=== PATIENT | female | born 1945 | race Caucasian/White ===

== ENCOUNTER 2018-04-29 17:52 | Emergency (ER) | payer MEDICARE ==
[~2018-04-29] VITALS: Ht 167.6 cm; Wt 83.9 kg
[~2018-04-29 17:52] MED LIST: LEVO100T PO
--- NOTE | 2018-04-29 18:00 | NUR ---
ARRIVAL PATIENT TO ROOM 4 AMBULATORY, STATES SHE IS HAVEING SEVERE LOWER ABDOMINAL PAIN. HAD A HERNIAL REPAIR FOR ENSTRANGULATED HERNIA [address] MCKINNON, AND PATIENT FEELS LIKE IT IS THE SAME PAIN. PATIENT CONNECTED TO ALL MONITORS, ASSESSMENT COMPLETED. MD AT BEDSIDE FOR EVALUATION.
[2018-04-29 18:13] VITALS: BP 166/88
--- NOTE | 2018-04-29 18:17 | ER.PDOC ---
General Chief Complaint: Abdomen Pain Stated Complaint: ABD HERNIA PAIN Time seen by MD: 18:10 Source: patient Exam Limitations: no limitations History of Present Illness Initial Comments Abdominal pain for two days, pt states pain is same as it was two years ago when she had a hernia, that was later repaired Timing/Duration: 1 week Severity/Quality: severe Radiation: RUQ, epigastric Exacerbated by: upright, movements Relieved By: supine Allergies: Coded Allergies: hydrocodone (Unverified Allergy, Unknown, 01/11/14) promethazine HCl (Verified Allergy, Unknown, 01/11/14) Home Meds Reported Medications Levothyroxine Sodium (SYNTHROID) 100 Mcg Tablet, 100 MCG PO DAILY 01/11/14 Vital Signs First Vital Signs Date Time Temp Pulse Resp B/P (MAP) Pulse Ox O2 Delivery O2 Flow Rate FiO2 04/29/18 18:09 98.5 75 18 97 Room Air Last Vital Signs Date Time Temp Pulse Resp B/P (MAP) Pulse Ox O2 Delivery O2 Flow Rate FiO2 04/29/18 18:09 98.6 74 18 04/29/18 18:09 97 Room Air Past Medical History Medical History: other Surgical History: hysterectomy, other LMP (females 10-50): hysterectomy Social History Smoking: non-smoker Alcohol Use: none Drug Use: none Constitutional: no symptoms reported EENTM: no symptoms reported Respiratory: no symptoms reported Cardiovascular: no symptoms reported Gastrointestinal: see HPI Genitourinary: no symptoms reported Musculoskeletal: no symptoms reported Skin: no symptoms reported Psychiatric/Neurological: no symptoms reported Endocrine: no symptoms reported Hematologic/Lymphatic: no symptoms reported Physical Exam General Appearance: No Apparent Distress, WD/WN HEENT: PERRL/EOMI, Normal ENT Inspection, TMs Normal, Pharynx Normal Neck: Non-Tender, Full Range of Motion, Supple, Normal Inspection Respiratory: chest non-tender, lungs clear, normal breath sounds, no respiratory distress, no accessory muscle use Cardiovascular: Normal Peripheral Pulses, Regular Rate, Rhythm, No Edema, No Gallop, No JVD, No Murmur Gastrointestinal: Normal Bowel Sounds, Soft, Tenderness (RUQ, epigastric) Back: Normal Inspection, No CVA Tenderness, No Vertebral Tenderness Extremities: Normal Range of Motion, Non-Tender, Normal Inspection, No Pedal Edema, No Calf Tenderness, Normal Capillary Refill, Pelvis Stable Neurologic/Psychiatric: manager erp II-XII NML as Tested, No Motor/Sensory Deficits, Alert, Normal Mood/Affect, Oriented x 3 Skin: Normal Color, Warm/Dry Lymphatic: No Adenopathy Course Vitals & review Data Vital Sign - Last 24 Hours 04/29/18 04/29/18 18:09 18:09 Temp 98.5 98.6 Pulse 75 74 Resp 18 18 Pulse Ox 97 O2 Delivery Room Air Departure Time of Disposition: 22:40 Disposition: 01 HOME, SELF-CARE Impression: Primary Impression: Abdominal pain Condition: Stable Patient Instructions: Abdominal Pain Referrals: BE GODINEZ MD (PCP) PRIMARY CARE PROVIDER Duration or Time Spent with Pa: 25 JEFFY GOMEZ MD Apr 29, 2018 18:17
[2018-04-29 18:31] LABS: BASOPHIL % 0.1 % (0.0-0.2); EOSINOPHIL # 0.1 10^3/uL (0.0-0.2); EOSINOPHIL % 0.7 % (0.0-5.0); HEMOGLOBIN 14.2 g/dL (12.0-15.0); LYMPHOCYTES # 2.7 10^3/uL (1.0-4.8); LYMPHOCYTES % 32.4 % (24.0-44.0); MEAN CELL HGB 28.8 pg (26-34); MEAN CELL HGB CONCENTRATION 32.8 g/dL (33-37); MEAN CORP VOLUME 87.8 fL (78-100); MEAN PLATELET VOLUME 10.5 fL (7.8-11.0); MONOCYTES % 12.2 % (5.0-12.0); NEUTROPHIL # 4.5 10^3/uL (1.8-7.7); NEUTROPHILS % 54.4 % (41.0-85.0); WHITE BLOOD CELL 8.3 10^3/uL (4.5-11.0)
[2018-04-29] MEDS ORDERED: ZOFRAN IV STA (18:40)
[2018-04-29] MEDS ORDERED: ZOFRAN ONE (18:40)
[2018-04-29] MEDS ORDERED: TORADOL ONE (18:40)
[2018-04-29] MEDS ORDERED: TORADOL IV STA (18:40)
--- NOTE | 2018-04-29 18:45 | NUR ---
TORADOL AND ZOFRAN PATIENT STATES SHE WANTS TO HOLD OFF ON THE PAIN MEDICATION AND NAUSEA MEDICINE, EDP NOTIFIED
[2018-04-29 18:46] LABS: CALCIUM 9.2 mg/dL (8.4-10.5)
[2018-04-29 19:15] VITALS: BP 148/75
[2018-04-29 19:36] LABS: BILIRUBIN,URINE NEGATIVE (NEGATIVE); UROBILINOGEN,URINE NORMAL (NEGATIVE)
[2018-04-29 19:44] LABS: APPEARANCE,URINE CLEAR (CLEAR); UA COLOR YELLOW (YELLOW)
[2018-04-29 20:15] VITALS: BP 150/71
--- NOTE | 2018-04-29 20:51 | NUR ---
BACK FROM CT PATIENT BACK FROM CT
[2018-04-29 21:15] VITALS: BP 150/68
--- NOTE | 2018-04-29 22:33 | DIREP ---
PROCEDURE:CT ABDOMEN/PELVIS W/ CONTRAST COMPARISON:[facility], CT, CT-ABDOMEN / PELVIS W CONTRAST, 01/11/2014, 05:24 PM. INDICATIONS:abdominal pain TECHNIQUE:Axial images were created through the abdomen and pelvis with non-ionic intravenous contrast material. Oral contrast was administered. Sagittal and coronal reconstructions were performed from source images. FINDINGS: LUNG BASES:Emphysematous lung disease. LIVER:Diffusely diminished hepatic attenuation consistent with hepatic steatosis. BILIARY:The gallbladder is surgically absent. There is no biliary ductal dilatation. PANCREAS:Normal. No lesion, fluid collection, ductal dilatation, or atrophy. SPLEEN:Normal. No enlargement or focal lesion. ADRENALS:Normal. No mass or enlargement. URINARY TRACT:Small bilateral sub cm renal cysts. No focal lesions or hydronephrosis. Incidental prominent bilateral extrarenal pelvises. AORTA/VASCULAR:Normal. No aneurysm. RETROPERITONEUM:Normal. No mass or adenopathy. BOWEL/MESENTERY:Numerous sigmoid diverticula. Normal appendix. ABDOMINAL WALL:Normal. No mass or hernia. PELVIC ORGANS:Atrophic uterus. BONES:Mild chronic compression fracture deformity superior L4 endplate. OTHER:Negative. CONCLUSION:Sigmoid diverticulum. No definite evidence of acute diverticulitis however. Dictated by: Dony Painting M.D. on 04/29/2018 at 10:27 PM
[2018-04-29 22:45] VITALS: BP 150/84
--- NOTE | 2018-04-29 22:48 | NUR ---
IV DC'D TIP INTACT, NO BLEEDING
[2018-04-29 22:56] VITALS: BP 150/68
== END 2018-04-29 22:50 | disposition home or self-care (01) ==
LOC: ER 17:52
DX: R10.9 Unspecified abdominal pain (principal); Z90.710 Acquired absence of both cervix and uterus; Z88.5 Allergy status to narcotic agent; Z79.899 Other long term (current) drug therapy; Z88.8 Allergy status to other drugs, medicaments and biological substances
CPT/HCPCS: 36415; 74177; 80053; 81000; 82150; 83690; 85025; 85610; 85730; 87086; 96374; 99285; J1885; J2405; Q9963; Q9965

== ENCOUNTER 2020-04-20 13:11 | Emergency (ER) | payer BC, MEDICARE ==
[~2020-04-20] VITALS: Ht 167.6 cm; Wt 81.2 kg
[2020-04-20 13:47] VITALS: BP_SYST 164; BP_DIAS 100; BP_DIAS 101
[2020-04-20] MEDS ORDERED: NS 1000ML 1,000 ML IV STA (13:58)
[2020-04-20] MEDS ORDERED: ZOFRAN IV STA (13:58)
[2020-04-20] MEDS ORDERED: SUBLIMAZE IV STA (13:58)
--- NOTE | 2020-04-20 14:00 | ER.PDOC ---
General Chief Complaint: Requesting Medical Care Stated Complaint: ABD PAIN Time seen by MD: 13:53 Source: patient Exam Limitations: no limitations History of Present Illness Initial Comments Patient c/o left side abdominal pain, onset last pm, transiently resolved, came back worse this afternoon. Normal BM this morning. No report of n/v. Pain is similar to that of 2 previous incarcerated hernias. Timing/Duration: 4-6 hours Severity/Quality: severe, sharpness, stabbing Radiation: LUQ, LLQ Associated Symptoms: back pain Exacerbated by: movements Relieved By: nothing Allergies: Coded Allergies: hydrocodone (Unverified Allergy, Unknown, 01/11/14) promethazine HCl (Verified Allergy, Unknown, 01/11/14) Home Meds Reported Medications Levothyroxine Sodium (SYNTHROID) 100 Mcg Tablet, 100 MCG PO DAILY 01/11/14 Vital Signs First Vital Signs Date Time Temp Pulse Resp B/P (MAP) Pulse Ox O2 Delivery O2 Flow Rate FiO2 04/20/20 13:47 99.9 81 18 04/20/20 13:47 164/101 (122) 96 Room Air Last Vital Signs Date Time Temp Pulse Resp B/P (MAP) Pulse Ox O2 Delivery O2 Flow Rate FiO2 04/20/20 15:45 78 154/88 (110) 97 Room Air 04/20/20 13:47 99.9 16 Past Medical History Medical History: thyroid disease, other (incarcerated hernia x 2) Surgical History: cholecystectomy, other (herniorrhaghy with mesh) Social History Drug Use: none Constitutional: no symptoms reported EENTM: no symptoms reported Respiratory: no symptoms reported Cardiovascular: no symptoms reported Gastrointestinal: see HPI, abdominal pain Genitourinary: no symptoms reported Musculoskeletal: no symptoms reported Skin: no symptoms reported Physical Exam General Appearance: Mild Distress (appears acutely uncomfortable), Obese Respiratory: lungs clear, normal breath sounds, no respiratory distress, no accessory muscle use Cardiovascular: Regular Rate, Rhythm Gastrointestinal: Hypoactive bowel sounds, Soft, Tenderness (TTP LUQ and LLQ with rebound) Back: CVA Tenderness (L) Extremities: No Pedal Edema, No Calf Tenderness Neurologic/Psychiatric: Alert, Normal Mood/Affect, Oriented x 3 Skin: Normal Color, Warm/Dry Results/Orders Results/Orders Orders - JOSSELINE ROMERO DO Cbc With Auto Diff (04/20/20 13:58) Comprehensive Metabolic Panel (04/20/20 13:58) Amylase (04/20/20 13:58) Lipase (04/20/20 13:58) Helicobacter Pylori (04/20/20 13:58) PT (04/20/20 13:58) Ct Abd/Pel With Iv Contrast (04/20/20 13:58) Partial Thromboplastin Time. (04/20/20 13:58) Urinalysis (04/20/20 13:58) Saline Lock (04/20/20 13:58) 0.9 % Sodium Chloride (Ns 1000ml) (04/20/20 13:58) Ondansetron Hcl/Pf (Zofran) (04/20/20 13:58) Fentanyl Citrate/Pf (Sublimaze) (04/20/20 13:58) Ciprofloxacin 400mg/D5w 200ml (Cipro) (04/20/20 17:18) Metronidazole/Sodium Chloride (Flagyl 50 (04/20/20 17:18) Ciprofloxacin 400mg/D5w 200ml (Cipro) (04/20/20 17:36) Metronidazole (Flagyl) (04/20/20 17:41) Ciprofloxacin Hcl (Cipro) (04/20/20 17:41) Vital Signs Date Time Temp Pulse Resp B/P (MAP) Pulse Ox O2 Delivery O2 Flow Rate FiO2 04/20/20 15:45 78 154/88 (110) 97 Room Air 04/20/20 14:45 74 158/94 (115) 96 Room Air 04/20/20 13:47 99.9 81 16 96 04/20/20 13:47 99.9 81 20 164/101 (122) 96 Room Air 04/20/20 13:47 99.9 81 18 Administered Medications Medications (Trade) Dose Ordered Sig/Rosemary Route PRN Reason Start Time Stop Time Status Last Admin Dose Admin Fentanyl Citrate (Sublimaze) 100 mcg STAT STAT IV 04/20/20 13:58 04/20/20 13:59 UNV 04/20/20 14:18 50 MCG Ondansetron HCl (Zofran) 4 mg STAT STAT IV 04/20/20 13:58 04/20/20 13:59 UNV 04/20/20 14:18 4 MG Sodium Chloride 1,000 ml @ 1,200 mls/hr Q50M STAT IV 04/20/20 13:58 04/20/20 14:47 UNV 04/20/20 14:18 1,200 MLS/HR Laboratory Tests Test 04/20/20 13:54 04/20/20 14:20 Urine Collection Type VOID Urine Color YELLOW (YELLOW) Urine Appearance CLEAR (CLEAR) Urine Bilirubin NEGATIVE MG/DL (NEGATIVE) Urine Ketones NEGATIVE (NEGATIVE) Urine Specific [place] 1.015 (1.005-1.035) Urine pH 7.0 (5.0-6.0) Urine Protein NEGATIVE (NEGATIVE) Urine Urobilinogen NORMAL (NEGATIVE) Urine Nitrate NEGATIVE (NEGATIVE) Urine Leukocyte Esterase NEGATIVE (NEGATIVE) Urine Blood 25 1+ (NEGATIVE) H Urine RBC 0-2 RBC/HPF (NONE SEEN) Urine WBC 0-2 WBC/HPF (0-2) Urine Squamous Epithelial Cells RARE #/HPF (FEW) Urine Bacteria NONE SEEN (NONE SEEN) Urine Glucose NORMAL (NEGATIVE) White Blood Count 8.9 10^3/uL (4.5-11.0) Red Blood Count 4.75 10^6/uL (4.00-5.20) Hemoglobin 14.1 g/dL (12.0-15.0) Hematocrit 42.4 % (36.0-46.0) Mean Corpuscular Volume 89.3 fL (78-100) Mean Corpuscular Hemoglobin 29.7 pg (26-34) Mean Corpuscular Hemoglobin Concent 33.3 g/dL (33-36.5) Red Cell Distribution Width 12.1 % (11.5-14.5) Platelet Count 324 10^3/uL (150-400) Mean Platelet Volume 10.2 fL (7.8-11.0) Neutrophils (%) (Auto) 71.3 % (41.0-85.0) Lymphocytes (%) (Auto) 20.5 % (24.0-44.0) L Monocytes (%) (Auto) 7.5 % (5.0-12.0) Neutrophils # (Auto) 6.4 10^3/uL (1.8-7.7) Lymphocytes # (Auto) 1.83 10^3/uL1 (1.0-4.8) Monocytes # (Auto) 0.7 10^3/uL (0.3-0.8) Absolute Immature Granulocyte (auto 0.02 10^3 u/L (0-2) Absolute Eosinophils (auto) 0.0 10^3/uL (0.0-0.2) Immature Granulocytes % 0.20 % (0.00-0.50) Eosinophils % 0.3 % (0.0-5.0) Basophils % 0.2 % (0.0-0.2) Basophils # 0.0 10^3/uL (0.0-0.1) Prothrombin Time 10.2 SEC (9.3-11.3) Prothrombin Time INR (Non-Therap) 1.0 Activated Partial Thromboplast Time 24.2 SEC (24.67-30.72) Sodium Level 140 mmol/L (132-145) Potassium Level 3.3 mmol/L (3.6-5.2) L Chloride Level 103.0 mmol/L (96-109) Carbon Dioxide Level 27.7 mmol/L (20.0-32) Anion Gap 12.6 Blood Urea Nitrogen 7 mg/dL (7-18) Creatinine 0.76 mg/dL (0.59-1.40) Estimated GFR () 89.8 (>/=60) Est GFR (CKD-EPI)(Non-Afr Citizen Of [place]) 74.2 (>/=60) BUN/Creatinine Ratio 9.0 Glucose Level 99 mg/dL (70-110) Calcium Level 8.8 mg/dL (8.4-10.5) Total Bilirubin 0.6 mg/dL (0.2-1.0) Aspartate Amino Transferase (AST) 16 U/L (0-35) Alanine Aminotransferase (ALT) 21 U/L (12-78) Alkaline Phosphatase 77 U/L (50-136) Total Protein 7.1 g/dL (6.4-8.2) Albumin 3.6 g/dL (3.4-5.0) Globulin 3.5 Amylase Level 56 U/L (25-115) Lipase 114 U/L (114-286) Helicobacter pylori Screen POSITIVE (NEGATIVE) Progress Progress labs WNL; CT sees probable sigmoid diverticulitis; I offered patient admission--she declined; she does agree to return if pain is severe, fever, worse; first dose abx here Departure Time of Disposition: 17:44 Disposition: 01 HOME, SELF-CARE Impression: Primary Impression: Diverticulitis of sigmoid colon Condition: Improved Patient Instructions: Diverticulitis Referrals: BE GODINEZ MD (PCP) PRIMARY CARE PROVIDER Additional Instructions: Take both antibiotics until all gone. Alternate Motrin and Tylenol every 4 hours per package instructions for pain. Return to ER if symptoms worsen, severe pain, fever or any other concerns. Follow up with your doctor next week for reevaluation. Duration or Time Spent with Pa: 30 min JOSSELINE ROMERO DO Apr 20, 2020 14:00
[2020-04-20] MEDS ORDERED: NS 1000ML 1,000 ML ONE (14:11)
[2020-04-20] MEDS ORDERED: ZOFRAN ONE (14:11)
[2020-04-20] MEDS ORDERED: SUBLIMAZE ONE (14:12)
[2020-04-20 14:32] LABS: BASOPHIL % 0.2 % (0.0-0.2); EOSINOPHIL % 0.3 % (0.0-5.0); LYMPHOCYTES # 1.83 10^3/uL1 (1.0-4.8); LYMPHOCYTES % 20.5 % (24.0-44.0); MEAN CORP HGB 29.7 pg (26-34); MONOCYTES # 0.7 10^3/uL (0.3-0.8); MONOCYTES % 7.5 % (5.0-12.0); NEUTROPHIL # 6.4 10^3/uL (1.8-7.7); NEUTROPHILS % 71.3 % (41.0-85.0); PLATELET COUNT 324 10^3/uL (150-400); RED CELL DISTRIBUTION WIDTH 12.1 % (11.5-14.5)
[2020-04-20 14:45] VITALS: BP 158/94
[2020-04-20 14:49] LABS: APPEARANCE,URINE CLEAR (CLEAR); BILIRUBIN,URINE NEGATIVE (NEGATIVE); UA COLOR YELLOW (YELLOW)
[2020-04-20 14:50] LABS: UROBILINOGEN,URINE NORMAL (NEGATIVE)
[2020-04-20 14:57] LABS: CALCIUM 8.8 mg/dL (8.4-10.5); CARBON DIOXIDE 27.7 mmol/L (20.0-32)
[2020-04-20 15:45] VITALS: BP 154/88
--- NOTE | 2020-04-20 15:56 | NUR ---
STATUS PT RESTING IN WC AT BEDSIDE, DAUGHTER AT BEDSIDE.
[2020-04-20 16:45] VITALS: BP 148/84
--- NOTE | 2020-04-20 16:46 | DIREP ---
PROCEDURE:CT ABD/PELVIS WITH CONTRAST TECHNIQUE:No oral contrast was given. Following the intravenous administration of contrast material, venous phase cuts were obtained through the abdomen and pelvis. The images were viewed at lung and soft tissue settings. Sagittal and coronal reconstructions are provided. COMPARISON:[facility] CT, US, US ABDOMEN COMPLETE, 02/02/2020, 02:[address] [facility], CT, CT ABD/PELVIS W/O, 06/05/2019, 10:14 AM. INDICATIONS:left side abdominal pain FINDINGS: LOWER CHEST:Emphysema. No infiltrate or pleural effusion. LIVER:Stable small left hepatic cyst. BILIARY:Cholecystectomy. No biliary duct dilatation. PANCREAS:Normal. SPLEEN:Normal. URINARY TRACT:Normal nephrograms without obstruction or perinephric inflammation. Probable bilateral renal cysts, too small to characterize. Unremarkable urinary bladder. ADRENALS:Normal. AORTA/VASCULAR:Normal. RETROPERITONEUM:Normal. BOWEL/MESENTERY:Stable large descending duodenal diverticulum. Distal colonic diverticulosis with wall thickening of the mid sigmoid colon. No obstruction, significant inflammatory stranding, free fluid or air. Right paramidline cecum. Nonvisualized appendix. ABDOMINAL WALL:Reduction of right inguinal hernia. PELVIS:Hysterectomy. BONES:Chronic mild superior central compression deformity L4. OTHER:Normal. CONCLUSION: 1. Colonic diverticulosis and possible early/mild acute sigmoid diverticulitis. Neoplasm not excluded. 2. Stable small left hepatic cyst. 3. Probable small bilateral renal cysts. Dictated by: Vanessa Mcnamara MD on 04/20/2020 at 04:35 PM
[2020-04-20] MEDS ORDERED: CIPRO 200 ML IV STA (17:18)
[2020-04-20] MEDS ORDERED: FLAGYL 500MG/ 100 ML NS 100 ML IV STA (17:18)
[2020-04-20] MEDS ORDERED: CIPRO 200 ML IV ONE (17:36)
[2020-04-20] MEDS ORDERED: CIPRO ONE (17:41)
[2020-04-20] MEDS ORDERED: FLAGYL ONE (17:41)
[2020-04-20 17:45] VITALS: BP 152/86
== END 2020-04-20 17:54 | disposition home or self-care (01) ==
LOC: ER 13:11
DX: R10.12 Left upper quadrant pain (principal); R10.32 Left lower quadrant pain; Z90.89 Acquired absence of other organs; Z88.5 Allergy status to narcotic agent
CPT/HCPCS: 36415; 74177; 80053; 81000; 82150; 83690; 85025; 85610; 85730; 86677; 96374; 96375; 99285; J0744; J2405; J3010; J7030; Q9963; Q9965; 99284

== ENCOUNTER 2020-09-17 09:32 | Observation (INO) | payer MEDICARE ==
[~2020-09-17] VITALS: Ht 162.6 cm; Wt 91.2 kg
[2020-09-17 10:01] VITALS: BP 167/100
[2020-09-17] MEDS ORDERED: MORPHINE SULFATE IV STA ×2 (10:07→10:24)
[2020-09-17] MEDS ORDERED: ZOFRAN IV STA (10:07)
[2020-09-17 10:13] LABS: BASOPHIL % 0.1 % (0.0-0.2); LYMPHOCYTES # 1.43 10^3/uL1 (1.0-4.8); LYMPHOCYTES % 17.2 % (24.0-44.0); MONOCYTES # 0.6 10^3/uL (0.3-0.8); MONOCYTES % 7.5 % (5.0-12.0); NEUTROPHIL # 6.2 10^3/uL (1.8-7.7); NEUTROPHILS % 74.7 % (41.0-85.0); PLATELET COUNT 339 10^3/uL (150-400); RED CELL DISTRIBUTION WIDTH 12.5 % (11.5-14.5)
[2020-09-17] MEDS ORDERED: NS 1000ML 1,000 ML ONE (10:14)
[2020-09-17] MEDS ORDERED: MORPHINE SULFATE ONE ×2 (10:14→23:13)
[2020-09-17] MEDS ORDERED: ZOFRAN ONE (10:14)
--- NOTE | 2020-09-17 10:29 | ER.PDOC ---
General Chief Complaint: Abdomen Pain Stated Complaint: HERNIA Time seen by MD: 10:22 Source: patient Exam Limitations: no limitations History of Present Illness Timing/Duration: 4-6 hours Severity/Quality: severe, cramping Radiation: RLQ, LLQ, back Associated Symptoms: nausea/vomiting Exacerbated by: movements, walking, cough, food Allergies: Coded Allergies: hydrocodone (Verified Allergy, Unknown, 09/17/20) promethazine HCl (Verified Allergy, Unknown, 09/17/20) Home Meds Reported Medications Levothyroxine Sodium (SYNTHROID) 100 Mcg Tablet, 100 MCG PO DAILY 01/11/14 Vital Signs First Vital Signs Date Time Temp Pulse Resp B/P (MAP) Pulse Ox O2 Delivery O2 Flow Rate FiO2 09/17/20 10:01 98.2 85 20 09/17/20 10:01 167/100 (122) 97 Room Air Last Vital Signs Date Time Temp Pulse Resp B/P (MAP) Pulse Ox O2 Delivery O2 Flow Rate FiO2 09/17/20 10:42 73 20 123/71 (88) 95 Room Air 09/17/20 10:01 98.2 Past Medical History Medical History: thyroid disease Surgical History: cholecystectomy, other LMP (females 10-50): postmenopause Social History Alcohol Use: none Drug Use: none Reviewed Nursing Reviewed: Vital Signs, Abn. Noted All Other Systems: Reviewed and Negative Physical Exam General Appearance: No Apparent Distress, WD/WN HEENT: PERRL/EOMI, Normal ENT Inspection, TMs Normal, Pharynx Normal Neck: Non-Tender, Full Range of Motion, Supple, Normal Inspection Respiratory: chest non-tender, lungs clear, normal breath sounds, no respiratory distress, no accessory muscle use Cardiovascular: Normal Peripheral Pulses, Regular Rate, Rhythm, No Edema, No Gallop, No JVD, No Murmur Gastrointestinal: Normal Bowel Sounds, Non Tender, Soft, Guarding, Tenderness Back: Normal Inspection, No CVA Tenderness, No Vertebral Tenderness Extremities: Swelling 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 (09/17/20 10:04) Urinalysis (09/17/20 10:04) Saline Lock (09/17/20 10:04) Ekg-Routine (09/17/20 10:05) Morphine Sulfate (Morphine Sulfate) (09/17/20 10:07) Ondansetron Hcl/Pf (Zofran) (09/17/20 10:07) 0.9 % Sodium Chloride (Ns 1000ml) (09/17/20 10:30) 0.9 % Sodium Chloride (Ns 1000ml) (09/17/20 10:14) Ondansetron Hcl/Pf (Zofran) (09/17/20 10:14) Morphine Sulfate (Morphine Sulfate) (09/17/20 10:14) Morphine Sulfate (Morphine Sulfate) (09/17/20 10:24) Fentanyl Citrate/Pf (Sublimaze) (09/17/20 11:27) Fentanyl Citrate/Pf (Sublimaze) (09/17/20 11:28) Vital Signs Date Time Temp Pulse Resp B/P (MAP) Pulse Ox O2 Delivery O2 Flow Rate FiO2 09/17/20 10:42 73 20 123/71 (88) 95 Room Air 09/17/20 10:01 98.2 85 20 09/17/20 10:01 98.2 85 20 167/100 (122) 97 Room Air 09/17/20 10:01 98.2 85 20 Administered Medications Medications (Trade) Dose Ordered Sig/Rosemary Route PRN Reason Start Time Stop Time Status Last Admin Dose Admin Fentanyl Citrate (Sublimaze) 50 mcg STAT STAT IV 09/17/20 11:27 09/17/20 11:28 DC 09/17/20 11:40 50 MCG Morphine Sulfate (Morphine Sulfate) 4 mg STAT STAT IV 09/17/20 10:24 09/17/20 10:26 DC 09/17/20 10:22 4 MG Ondansetron HCl (Zofran) 4 mg STAT STAT IV 09/17/20 10:07 09/17/20 10:09 DC 09/17/20 10:22 4 MG Sodium Chloride 1,000 ml @ 0 mls/hr Q0M ONCE IV 09/17/20 10:30 09/17/20 10:31 DC 09/17/20 10:22 1,000 MLS/HR Laboratory Tests Test 09/17/20 10:04 09/17/20 10:05 White Blood Count 8.3 10^3/uL (4.5-11.0) Red Blood Count 5.21 10^6/uL (4.00-5.20) H Hemoglobin 15.1 g/dL (12.0-15.0) H Hematocrit 45.7 % (36.0-46.0) Mean Corpuscular Volume 87.7 fL (78-100) Mean Corpuscular Hemoglobin 29.0 pg (26-34) Mean Corpuscular Hemoglobin Concent 33.0 g/dL (33-36.5) Red Cell Distribution Width 12.5 % (11.5-14.5) Platelet Count 339 10^3/uL (150-400) Mean Platelet Volume 10.1 fL (7.8-11.0) Neutrophils (%) (Auto) 74.7 % (41.0-85.0) Lymphocytes (%) (Auto) 17.2 % (24.0-44.0) L Monocytes (%) (Auto) 7.5 % (5.0-12.0) Neutrophils # (Auto) 6.2 10^3/uL (1.8-7.7) Lymphocytes # (Auto) 1.43 10^3/uL1 (1.0-4.8) Monocytes # (Auto) 0.6 10^3/uL (0.3-0.8) Absolute Immature Granulocyte (auto 0.04 10^3 u/L (0-2) Absolute Eosinophils (auto) 0.0 10^3/uL (0.0-0.2) Immature Granulocytes % 0.50 % (0.00-0.50) Eosinophils % 0.0 % (0.0-5.0) Basophils % 0.1 % (0.0-0.2) Basophils # 0.0 10^3/uL (0.0-0.1) Prothrombin Time 9.8 SEC (9.3-11.3) Prothrombin Time INR (Non-Therap) 1.0 Activated Partial Thromboplast Time 24.1 SEC (24.67-30.72) Sodium Level 136 mmol/L (132-145) Potassium Level 4.5 mmol/L (3.6-5.2) Chloride Level 101.0 mmol/L (96-109) Carbon Dioxide Level 23.3 mmol/L (20.0-32) Anion Gap 16.2 Blood Urea Nitrogen 13 mg/dL (7-18) Creatinine 0.81 mg/dL (0.59-1.40) Estimated GFR () 83.4 (>/=60) Est GFR (CKD-EPI)(Non-Afr [place]) 68.9 (>/=60) BUN/Creatinine Ratio 16.0 Glucose Level 91 mg/dL (70-110) Calcium Level 9.0 mg/dL (8.4-10.5) Total Bilirubin 0.5 mg/dL (0.2-1.0) Aspartate Amino Transferase (AST) 53 U/L (0-35) H Alanine Aminotransferase (ALT) 37 U/L (12-78) Alkaline Phosphatase 64 U/L (50-136) Total Protein 7.0 g/dL (6.4-8.2) Albumin 3.1 g/dL (3.4-5.0) L Globulin 3.9 Albumin/Globulin Ratio 0.794 Amylase Level 53 U/L (25-115) Lipase 139 U/L (114-286) Helicobacter pylori Screen POSITIVE (NEGATIVE) EKG/XRAY/CT/US EKG: NSR, nonspecific ST T wave chg Consult/PCP Time Consult/PCP Called: 12:22 Consult/PCP: DR YUMIKO SALAS DEPART Departure Time of Disposition: 12:00 Disposition: 09 ADMITTED INPATIENT Impression: Primary Impression: Enteritis Condition: Stable Referrals: BE GODINEZ MD (PCP) PRIMARY CARE PROVIDER Duration or Time Spent with Pa: OctavioM MELANIE FISHER MD Sep 17, 2020 10:29
--- NOTE | 2020-09-17 10:29 | PCM.EKG ---
[facility] Test Date: 2020-09-17 Test Time: 10:26:14 Pat Name: NIRAV PACHECO Department: Room: 233 Gender: F Debt Collector: CLEMENTINE : 1945 Requested By: MELANIE MAGALLANES Order Number: [id number] Reading MD: Melanie Magallanes Measurements Intervals [place] Rate: 79 P: 0 SD: 75 QRS: -43 QRSD: 96 T: 197 QT: 365 QTc: 419 Interpretive Statements Sinus rhythm Ventricular premature complex Abnormal R-wave progression, late transition Nonspecific repol abnormality, diffuse leads Ventricular premature complex(es) now present Short SD interval now present Electronically Signed On 09-21-2020 9:15:28 ELECTRICAL TECH by Melanie Magallanes Please click the below link to view image of tracing.
[2020-09-17 10:30] LABS: CARBON DIOXIDE 23.3 mmol/L (20.0-32)
[2020-09-17] MEDS ORDERED: NS 1000ML 1,000 ML IV ONE (10:30)
[2020-09-17 10:42] VITALS: BP 123/71
[2020-09-17] MEDS ORDERED: SUBLIMAZE IV STA (11:27)
[2020-09-17] MEDS ORDERED: SUBLIMAZE ONE (11:28)
--- NOTE | 2020-09-17 11:57 | DIREP ---
PROCEDURE:CT ABDOMEN/PELVIS W/ CONTRAST COMPARISON:[facility], CT, CT ABD/PELVIS W/ CONTRAST, 04/20/2020, 04:14 PM. INDICATIONS:abdominal TECHNIQUE:Axial images were created through the abdomen and pelvis with non-ionic intravenous contrast material. No oral contrast was administered. Sagittal and coronal reconstructions were performed from source images. FINDINGS: LUNG BASES:Normal. No visible pulmonary or pleural disease. LIVER:No significant lesions. Two tiny sub cm cysts. BILIARY:Cholecystectomy PANCREAS:No pancreatic lesion. Duodenal diverticulum adjacent to the pancreatic head, unchanged SPLEEN:Normal. No enlargement or focal lesion. ADRENALS:Normal. No mass or enlargement. URINARY TRACT:Several sub cm cysts, nonenhancing, both kidneys. No hydronephrosis or hydroureter AORTA/VASCULAR:Normal. No aneurysm. RETROPERITONEUM:Normal. No mass or adenopathy. BOWEL/MESENTERY:No oral contrast. Edematous small bowel mesentery with mild thickening of small bowel wall, multiple loops mid abdomen. Distal small bowel and right lower quadrant unremarkable. Scattered diverticula of the left colon, no focal signs of diverticulitis in the left lower quadrant or pelvis. Superior mesenteric artery is identified and patent in the proximal portion. ABDOMINAL WALL:Tiny left inguinal hernia with some inflammation in the surrounding fat PELVIC ORGANS:Normal. No visible mass. Pelvic organs appropriate for patient age. BONES:Bowing of the L4 endplates, unchanged OTHER:Negative. CONCLUSION:Edema of the proximal small bowel mesentery with thickening of small bowel wall in the central abdomen. No dilated loops. No fluid collection. Mild diverticulosis without signs of diverticulitis. Dictated by: Bhavin Greene MD on 09/17/2020 at 11:47 AM
[2020-09-17] MEDS ORDERED: LACTATED RINGERS 1,000 ML SCH (12:30)
[2020-09-17] MEDS ORDERED: SUBLIMAZE IV PRN (12:30)
[2020-09-17 12:33] LABS: APPEARANCE,URINE CLEAR (CLEAR); BILIRUBIN,URINE NEGATIVE (NEGATIVE); UA COLOR YELLOW (YELLOW)
[2020-09-17 12:34] LABS: UROBILINOGEN,URINE NEGATIVE (NEGATIVE)
[2020-09-17 13:08] VITALS: BP 151/62
[2020-09-17] MEDS ORDERED: ACTIDOSE-AQUA ONE (13:16)
[2020-09-17 14:30] VITALS: BP 135/68
--- NOTE | 2020-09-17 14:30 | NUR ---
Received patient from ER alert and oriented x3, on 2I/mn via nasal canula no distress noted. Patient admitted for c/o of abdominal pain as per report . IV on left hand infusing . LR at 100 ml/hr. V/S: temp 97.5, pulse 73 , BP 158/83, O2 sat 95%. [place] intact, bilateral SCDs in place continue monitoring.
--- NOTE | 2020-09-17 14:50 | NUR ---
PT SAO2 90-91%. APPLIED 2 L OF O2 NC. SAO2 INCREASED TO 96%.
[2020-09-17] MEDS: LACTATED RINGERS 1,000 ML IV SCH ×2 (15:03→22:17)
[2020-09-17 15:10] VITALS: BP 158/83
--- NOTE | 2020-09-17 15:57 | PCM.HP ---
History of Present Illness Reason for Visit: (1) Abdominal pain ICD Code: R10.9 - Unspecified abdominal pain SNOMED: 00450717 Hx of Present Illness Patient is a 75-year-old very pleasant lady with a past medical history of hypothyroidism who presented to the ED this morning with a complaint of severe pain, 10/10 across the middle of the belly which is moving throughout the abdomen. She tells me that she woke up went to the bathroom, had a normal BM, and then felt this pain started. She says the pain feels like bloating and as if she is gassy. Because of that feeling she took [place] but did not have any relief from it. She says she is having a hard time describing what the pain feels like because it is so severe. She continues to sit if she lays perfectly still the pain is 6 out of 10 but with any movement it becomes a 10 out of 10. The pain migrates from the upper quadrants to the lower quadrant and during our interview she tells me that the pain actually moved to the right shoulder. Patient denies any nausea vomiting, diarrhea, or any other symptoms pertaining to the abdomen or any other part of her body at this time. Patient states that she has been feeling just fine until she woke up this morning. She did in fact recently recover from COVID-19 and did have IV antibiotics and treatments at home but was never hospitalized. In emergency she was worked up she was found to have a normal white blood cell count, hemoglobin of 15, hematocrit 45.7 her chemistry was within normal limits except for mildly elevated AST at 53 and an albumin of 3.1 which is mildly low. She was positive for H. pylori, however negative for SARS-CoV-[address] of the abdomen was done which showed edema of the proximal small bowel mesentery with thickening of the small bowel wall and central abdomen, however no dilated loops were seen, no fluid collection. There was mild diverticulosis without signs of diverticulitis. Past Medical History PMH-Endocrine: (1) Hypothyroidism ICD Code: E03.9 - Hypothyroidism, unspecified SNOMED: 52455129 Endocrine: Hyperthyroidism Past Surgical History: (1) FHx: GI cancer ICD Code: Z80.0 - Family history of malignant neoplasm of digestive organs SNOMED: 798148895 (2) Family history of cerebrovascular accident (CVA) in mother ICD Code: Z82.3 - Family history of stroke SNOMED: 635720594, 535234008 (3) H/O hernia repair ICD Code: Z98.890 - Other specified postprocedural states; Z87.19 - Personal history of other diseases of the digestive system SNOMED: 45177406, [id number] (4) History of cholecystectomy ICD Code: Z90.49 - Acquired absence of other specified parts of digestive tract SNOMED: 81808660, 975892799 (5) Lung collapse ICD Code: J98.19 - Other pulmonary collapse SNOMED: 65924669 (6) History of bladder suspension procedure ICD Code: Z98.890 - Other specified postprocedural states; Z87.448 - Personal history of other diseases of urinary system SNOMED: 470022465 Past Social History Past Social Hx:Smoke: (1) Smoking history ICD Code: Z87.891 - Personal history of nicotine dependence SNOMED: 086400599 (2) No history of alcohol use ICD Code: Z78.9 - Other specified health status SNOMED: 915287850 (3) No illicit drug use SNOMED: 752696987 (4) Lives with SNOMED: 236561118 Vaccines/Immunizations up-to-d: No (PT unsure) Travel History EBOLA RISK:Travel to/contact w: No Is pt experiencing any Ebola s: No Review of Systems Constitutional: No: Fever, Chills, Sweats, Weakness, Malaise, Other Eyes: No: Pain, Vision change, Conjunctivae inflammation, Eyelid inflammation, Other, Redness ENT: No: Ear pain, Ear discharge, Nose pain, Nose discharge, Nose congestion, Mouth pain, Mouth swelling, Throat pain, Throat swelling, Other Respiratory: No: Cough, Dry, Shortness of breath, SOB with excertion, Wheezing, Hemoptysis, Pleuritic Pain, Sputum, Wheezing, Other Cardiovascular: No: Chest Pain, Palpitations, Orthopnea, Paroxysmal Noc. Dyspnea, Edema, Lt Headedness, Other Gastrointestinal: Abdominal Pain; No: Nausea, Vomiting, Diarrhea, Constipation, Melena, Hematochezia, Other Genitourinary: No Dysuria, No Frequency, No Incontinence, No Hematuria, No Retention, No Other Musculoskeletal: No: other, neck pain, shoulder pain, arm pain, back pain, hand pain, leg pain, foot pain Skin: No: Rash, Lesions, Jaundice, Bruising, Other Neurological: No: Weakness, Numbness, Incoordination, Change in speech, Confusion, Seizures, Other Allergies: Coded Allergies: hydrocodone (Verified Allergy, Unknown, 09/17/20) promethazine HCl (Verified Allergy, Unknown, 09/17/20) Scheduled Levothyroxine Sodium (Synthroid), 100 MCG PO DAILY, (Reported) VTE VTE Risk Total Score: 2 VTE Risk Score VTE Risk: Score 0-1 = Low Risk (Aggressive mobilization; early ambulation; no VTE prophylaxis required) Score 2: Moderate Risk (Intermittent/Pneumatic Compression Device OR Lovenox/Heparin/Coumadin) Score 3-4: High Risk (Intermittent/Pneumatic Compression Device AND Lovenox/Heparin/Coumadin) Score > or =5: Highest Risk (Intermittent/Pneumatic Compression Device AND Lovenox/Heparin/Coumadin) Mechanical device ordered: Yes VTE VTE Present on Admission: No Currently receiving anticoagul: No VTE Risk Total Score: 2 Antico:Hep/LMWH/Coum/Xarelto: No Mechanical device ordered: Yes Protocol for Platelet Monitori: Tx adjusted per protocol Exam Vital Signs Vital Signs Date Time Temp Pulse Resp B/P (MAP) Pulse Ox O2 Delivery O2 Flow Rate FiO2 09/17/20 15:36 Nasal Cannula 2.00 09/17/20 15:10 97.5 73 18 158/83 (108) 09/17/20 14:30 96 General Appearance: Alert, Oriented X3, Cooperative, severe distress HEENT: Atraumatic, PERRLA, EOMI, Mucous membr. moist/pink Respiratory: Clear to auscultation, Normal air movement Cardiovascular: Regular rate, No murmurs Abdominal: Normal bowel sounds, Other (Difusely tender, mildly distended) Extremities: No clubbing, No edema, Normal pulses, No tenderness/swelling Skin: No rash, No breakdown, No lesions Neuro: Normal gait, Normal speech, Strength at 5/5 X4 ext, Cranial nerves 3-12 NL, Reflexes 2+ Psych/Mental Status: Mental status NL, Mood NL Assessment/Plan Assessment/Plan Assessment/Plan 1) Abdominal pain: Unclear etiology, CT scan does not give any clear indication of why she is having this diffuse pain, will get a sed rate and a CRP for further evaluation. It is my concern that there is some sort of IBS occurring here. Patient will be kept n.p.o. overnight at least to see if that helps at all. Pain medications will be available to her as needed. We will continue to monitor. 2) Hypothyroidism: Continue on current dose of levothyroxine. CODE STATUS: Full code Diet: N.p.o. DVT prophylaxis: SCDs Problem Qualifiers (1) Hypothyroidism: Hypothyroidism type: acquired Qualified Codes: E03.9 - Hypothyroidism, unspecified LEO SIDDIQUI MD Sep 17, 2020 15:57
--- NOTE | 2020-09-17 19:24 | NUR ---
Patient endorse to night nurse stable.
[2020-09-17 20:51] VITALS: BP 135/90
[2020-09-17] MEDS ORDERED: MYLICON PO PRN (21:30)
[2020-09-17] MEDS ORDERED: GENASYME ONE (21:33)
[2020-09-17] MEDS: ZOFRAN IV PRN (22:32)
[2020-09-18] VITALS (7 sets, daily range): BP systolic 132–146; BP diastolic 64–73
[2020-09-18] MEDS: MORPHINE SULFATE IV PRN ×3 (00:17→08:45)
[2020-09-18] MEDS: ZOFRAN IV PRN ×3 (05:32→14:43)
[2020-09-18 05:38] LABS: BASOPHIL % 0.1 % (0.0-0.2); LYMPHOCYTES # 0.92 10^3/uL1 (1.0-4.8); LYMPHOCYTES % 8.1 % (24.0-44.0); MEAN CORP HGB 29.9 pg (26-34); MONOCYTES # 0.8 10^3/uL (0.3-0.8); MONOCYTES % 7.1 % (5.0-12.0); NEUTROPHIL # 9.6 10^3/uL (1.8-7.7); NEUTROPHILS % 84.2 % (41.0-85.0); RED CELL DISTRIBUTION WIDTH 12.7 % (11.5-14.5)
[2020-09-18] MEDS: LACTATED RINGERS 1,000 ML IV SCH ×2 (05:50→21:46)
[2020-09-18] MEDS: SYNTHROID PO SCH (05:53)
[2020-09-18 06:07] LABS: CALCIUM 8.1 mg/dL (8.4-10.5); CARBON DIOXIDE 28.3 mmol/L (20.0-32)
--- NOTE | 2020-09-18 07:00 | NUR ---
RECEIVED PT BEDSIDE REPORT WITH KM RN PT IN THE BED WITH EYES CLOSED EASILY AROUSED DENIES PAIN VITAL SIGNS OBTAINED RESPIRATION EVEN AND UNLABORED LR INFUSING TO PIV #20 LEFT ARM PATENT BED LOWERED AND LOCKED CALL LIGHT IN EASY REACH WILL CONTINUE TO MONITOR
[2020-09-18] MEDS: PROTONIX IV IV SCH (08:16)
[2020-09-18] MEDS ORDERED: PROTONIX PO SCH (09:00)
--- NOTE | 2020-09-18 09:15 | PRM.PN ---
Subjective Subjective Date: Sep 18, 2020 Time: 09:14 Subjective Patient states that her abdominal pain is improving. She still does not feel like eating or drinking. Discussed that her CT scan was consistent with enterocolitis and we will treat with zosyn due to leukocytosis. Bowel rest for today and advance diet to clear liquids tomorrow Patient History: Cerebrovascular accident (CVA) in mother FHx: GI cancer VTE VTE Risk Total Score: 4 VTE Risk Score VTE Risk: Score 0-1 = Low Risk (Aggressive mobilization; early ambulation; no VTE prophylaxis required) Score 2: Moderate Risk (Intermittent/Pneumatic Compression Device OR Lovenox/Heparin/Coumadin) Score 3-4: High Risk (Intermittent/Pneumatic Compression Device AND Lovenox/Heparin/Coumadin) Score > or =5: Highest Risk (Intermittent/Pneumatic Compression Device AND Lovenox/Heparin/Coumadin) Antico:Hep/LMWH/Coum/Xarelto: No Mechanical device ordered: Yes Review of Systems Constitutional: No: Fever, Chills, Sweats, Weakness, Malaise, Other Eyes: No: Pain, Vision change, Conjunctivae inflammation, Eyelid inflammation, Other, Redness ENT: No: Ear pain, Ear discharge, Nose pain, Nose discharge, Nose congestion, Mouth pain, Mouth swelling, Throat pain, Throat swelling, Other Respiratory: No: Cough, Dry, Shortness of breath, SOB with excertion, Wheezing, Hemoptysis, Pleuritic Pain, Sputum, Wheezing, Other Cardiovascular: No: Chest Pain, Palpitations, Orthopnea, Paroxysmal Noc. Dyspnea, Edema, Lt Headedness, Other Gastrointestinal: Abdominal Pain; No: Nausea, Vomiting, Diarrhea, Constipation, Melena, Hematochezia, Other Genitourinary: No Dysuria, No Frequency, No Incontinence, No Hematuria, No Retention, No Other Musculoskeletal: No: other, neck pain, shoulder pain, arm pain, back pain, hand pain, leg pain, foot pain Skin: No: Rash, Lesions, Jaundice, Bruising, Other Neurological: No: Weakness, Numbness, Incoordination, Change in speech, Confusion, Seizures, Other Allergies: Coded Allergies: hydrocodone (Verified Allergy, Unknown, 09/17/20) promethazine HCl (Verified Allergy, Unknown, 09/17/20) Scheduled Levothyroxine Sodium (Synthroid), 100 MCG PO DAILY, (Reported) Prednisone (Prednisone), 20 MG PO DAILY24 Objective Vitals and I/O Vital Sign - Last 24 Hours 09/17/20 09/17/20 09/17/20 09/17/20 10:01 10:01 10:01 10:42 Temp 98.2 98.2 98.2 Pulse 85 85 85 73 Resp 20 20 20 20 B/P (MAP) 167/100 (122) 123/71 (88) Pulse Ox 97 95 O2 Delivery Room Air Room Air 09/17/20 09/17/20 09/17/20 09/17/20 13:08 14:30 15:10 15:21 Temp 98.2 97.5 Pulse 75 71 73 Resp 20 20 18 B/P (MAP) 151/62 (91) 135/68 (90) 158/83 (108) Pulse Ox 95 96 O2 Delivery Room Air Nasal Canula Nasal Canula Nasal Cannula O2 Flow Rate 2.00 2.00 2.00 09/17/20 09/17/20 09/18/20 09/18/20 15:36 20:51 01:04 05:06 Temp 98.9 98.2 98.5 Pulse 80 70 76 Resp 18 18 18 B/P (MAP) 135/90 (105) 134/68 (90) 133/65 (87) Pulse Ox 94 95 96 O2 Delivery Nasal Cannula O2 Flow Rate 2.00 09/18/20 07:15 Temp 98.8 Pulse 76 Resp 18 B/P (MAP) 146/73 (97) Pulse Ox 91 O2 Delivery Nasal [place] O2 Flow Rate 2.00 Intake and Output 09/18/20 07:00 Intake Total 1000 ml Balance 1000 ml General: Alert, Oriented X3, Cooperative, severe distress HEENT: Atraumatic, PERRLA, EOMI, Mucous membr. moist/pink Neck: Supple, No JVD Lungs: Clear to auscultation, Normal air movement Heart: Regular rate, No murmurs Abdomen: Normal bowel sounds, Soft, No tenderness, Other (Difusely tender, mildly distended) Extremities: No clubbing, No edema, Normal pulses, No tenderness/swelling Neuro: Normal gait, Normal speech, Strength at 5/5 X4 ext, Cranial nerves 3-12 NL, Reflexes 2+ Psych/Mental Status: Mental status NL, Mood NL All Results(Lab/Rad) Laboratory Tests Test 09/17/20 10:04 09/17/20 10:05 09/17/20 12:03 09/17/20 12:51 White Blood Count 8.3 10^3/uL Red Blood Count 5.21 10^6/uL Hemoglobin 15.1 g/dL Hematocrit 45.7 % Mean Corpuscular Volume 87.7 fL Mean Corpuscular Hemoglobin 29.0 pg Mean Corpuscular Hemoglobin Concent 33.0 g/dL Red Cell Distribution Width 12.5 % Platelet Count 339 10^3/uL Mean Platelet Volume 10.1 fL Neutrophils (%) (Auto) 74.7 % Lymphocytes (%) (Auto) 17.2 % Monocytes (%) (Auto) 7.5 % Neutrophils # (Auto) 6.2 10^3/uL Lymphocytes # (Auto) 1.43 10^3/uL1 Monocytes # (Auto) 0.6 10^3/uL Absolute Immature Granulocyte (auto 0.04 10^3 u/L Absolute Eosinophils (auto) 0.0 10^3/uL Immature Granulocytes % 0.50 % Eosinophils % 0.0 % Basophils % 0.1 % Basophils # 0.0 10^3/uL Prothrombin Time 9.8 SEC Prothrombin Time INR (Non-Therap) 1.0 Activated Partial Thromboplast Time 24.1 SEC Sodium Level 136 mmol/L Potassium Level 4.5 mmol/L Chloride Level 101.0 mmol/L Carbon Dioxide Level 23.3 mmol/L Anion Gap 16.2 Blood Urea Nitrogen 13 mg/dL Creatinine 0.81 mg/dL Estimated GFR () 83.4 Est GFR (CKD-EPI)(Non-Afr [place]) 68.9 BUN/Creatinine Ratio 16.0 Glucose Level 91 mg/dL Calcium Level 9.0 mg/dL Total Bilirubin 0.5 mg/dL Aspartate Amino Transf (AST/SGOT) 53 U/L Alanine Aminotransferase (ALT/SGPT) 37 U/L Alkaline Phosphatase 64 U/L Total Protein 7.0 g/dL Albumin 3.1 g/dL Globulin 3.9 Albumin/Globulin Ratio 0.794 Amylase Level 53 U/L Lipase 139 U/L Helicobacter pylori Screen POSITIVE Urine Collection Type CCMS Urine Color YELLOW Urine Appearance CLEAR Urine Bilirubin NEGATIVE MG/DL Urine Ketones NEGATIVE Urine Specific [place] 1.015 Urine pH 7.0 Urine Protein NEGATIVE Urine Urobilinogen NEGATIVE Urine Nitrate NEGATIVE Urine Leukocyte Esterase NEGATIVE Urine Blood TRACE Urine RBC 0-2 RBC/HPF Urine WBC 0-2 WBC/HPF Urine Squamous Epithelial Cells RARE #/HPF Urine Bacteria RARE Urine Glucose NORMAL SARS-CoV-2 Antigen (Rapid) NEGATIVE Test 09/17/20 17:00 09/17/20 23:47 09/18/20 05:25 Erythrocyte Sedimentation Rate 6 mm/hr Lactic Acid Level 1.0 mmol/L Troponin I < 0.02 ng/mL C-Reactive Protein 9.47 mg/dL White Blood Count 11.4 10^3/uL Red Blood Count 4.35 10^6/uL Hemoglobin 13.0 g/dL Hematocrit 38.6 % Mean Corpuscular Volume 88.7 fL Mean Corpuscular Hemoglobin 29.9 pg Mean Corpuscular Hemoglobin Concent 33.7 g/dL Red Cell Distribution Width 12.7 % Platelet Count 295 10^3/uL Mean Platelet Volume 10.0 fL Neutrophils (%) (Auto) 84.2 % Lymphocytes (%) (Auto) 8.1 % Monocytes (%) (Auto) 7.1 % Neutrophils # (Auto) 9.6 10^3/uL Lymphocytes # (Auto) 0.92 10^3/uL1 Monocytes # (Auto) 0.8 10^3/uL Absolute Immature Granulocyte (auto 0.06 10^3 u/L Absolute Eosinophils (auto) 0.0 10^3/uL Immature Granulocytes % 0.50 % Eosinophils % 0.0 % Basophils % 0.1 % Basophils # 0.0 10^3/uL Prothrombin Time 11.1 SEC Prothrombin Time INR (Non-Therap) 1.1 Sodium Level 136 mmol/L Potassium Level 3.1 mmol/L Chloride Level 100.0 mmol/L Carbon Dioxide Level 28.3 mmol/L Anion Gap 10.8 Blood Urea Nitrogen 8 mg/dL Creatinine 0.51 mg/dL Estimated GFR () 142.3 Est GFR (CKD-EPI)(Non-Afr [place]) 117.6 BUN/Creatinine Ratio 15.0 Glucose Level 105 mg/dL Hemoglobin A1c 6.0 % Calcium Level 8.1 mg/dL Total Bilirubin 0.7 mg/dL Aspartate Amino Transf (AST/SGOT) 48 U/L Alanine Aminotransferase (ALT/SGPT) 47 U/L Alkaline Phosphatase 57 U/L Total Protein 5.7 g/dL Albumin 2.4 g/dL Globulin 3.3 Albumin/Globulin Ratio 0.727 Current Medications Medications (Trade) Dose Ordered Sig/Rosemary Route PRN Reason Start Time Stop Time Status Last Admin Dose Admin Morphine Sulfate (Morphine Sulfate) 2 mg STAT STAT IV 09/17/20 10:07 09/17/20 10:09 DC Ondansetron HCl (Zofran) 4 mg STAT STAT IV 09/17/20 10:07 09/17/20 10:09 DC 09/17/20 10:22 Sodium Chloride 1,000 ml @ 0 mls/hr Q0M ONCE IV 09/17/20 10:30 09/17/20 10:31 DC 09/17/20 10:22 Sodium Chloride 1,000 ml @ ud STK-MED ONCE .ROUTE 09/17/20 10:14 09/17/20 10:14 DC Ondansetron HCl (Zofran) 4 mg STK-MED ONCE .ROUTE 09/17/20 10:14 09/17/20 10:14 DC Morphine Sulfate (Morphine Sulfate) 4 mg STK-MED ONCE .ROUTE 09/17/20 10:14 09/17/20 10:15 DC Morphine Sulfate (Morphine Sulfate) 4 mg STAT STAT IV 09/17/20 10:24 09/17/20 10:26 DC 09/17/20 10:22 Fentanyl Citrate (Sublimaze) 50 mcg STAT STAT IV 09/17/20 11:27 09/17/20 11:28 DC 09/17/20 11:40 Fentanyl Citrate (Sublimaze) 50 mcg STK-MED ONCE .ROUTE 09/17/20 11:28 09/17/20 11:28 DC Fentanyl Citrate (Sublimaze) 100 mcg Q4H PRN IV PAIN 4 - 6 09/17/20 12:30 10/17/20 12:29 09/17/20 16:55 Ondansetron HCl (Zofran) 4 mg Q4H PRN IV INDIGESTION 09/17/20 12:30 10/17/20 12:29 09/18/20 05:32 Charcoal (Actidose-Aqua) 50 gm STK-MED ONCE .ROUTE 09/17/20 13:16 09/17/20 13:16 DC Pantoprazole Sodium (Protonix) 40 mg DAILY PO 09/18/20 09:00 09/18/20 00:11 DC Levothyroxine Sodium (Synthroid) 100 mcg ACB PO 09/18/20 06:30 10/18/20 06:29 09/18/20 05:53 Simethicone (Mylicon) 80 mg Q6H PRN PO INDIGESTION 09/17/20 21:30 10/17/20 21:29 09/17/20 22:17 Simethicone (Genasyme) 80 mg STK-MED ONCE .ROUTE 09/17/20 21:33 09/17/20 21:33 DC Morphine Sulfate (Morphine Sulfate) 2 mg STK-MED ONCE .ROUTE 09/17/20 23:13 09/17/20 23:13 DC Morphine Sulfate (Morphine Sulfate) 2 mg Q3HR PRN IV PAIN 4 - 6 09/17/20 23:30 10/17/20 23:29 09/18/20 08:45 Pantoprazole Sodium (Protonix Iv) 40 mg DAILY IV 09/18/20 09:00 10/18/20 08:59 09/18/20 08:16 Course Sepsis Screening Results: Posi: NEGATIVE Sepsis Qualifier/Stage: NO DEFINITE RISK Duration or Total Time Spent w: 22M Vitals & review Data Vital Sign - Last 24 Hours 09/17/20 09/17/20 09/17/20 09/17/20 10:01 10:01 10:01 10:42 Temp 98.2 98.2 98.2 Pulse 85 85 85 73 Resp 20 20 20 20 B/P (MAP) 167/100 (122) 123/71 (88) Pulse Ox 97 95 O2 Delivery Room Air Room Air 09/17/20 09/17/20 09/17/20 09/17/20 13:08 14:30 15:10 15:21 Temp 98.2 97.5 Pulse 75 71 73 Resp 20 20 18 B/P (MAP) 151/62 (91) 135/68 (90) 158/83 (108) Pulse Ox 95 96 O2 Delivery Room Air Nasal Canula Nasal Canula Nasal Cannula O2 Flow Rate 2.00 2.00 2.00 09/17/20 09/17/20 09/18/20 09/18/20 15:36 20:51 01:04 05:06 Temp 98.9 98.2 98.5 Pulse 80 70 76 Resp 18 18 18 B/P (MAP) 135/90 (105) 134/68 (90) 133/65 (87) Pulse Ox 94 95 96 O2 Delivery Nasal Cannula O2 Flow Rate 2.00 09/18/20 07:15 Temp 98.8 Pulse 76 Resp 18 B/P (MAP) 146/73 (97) Pulse Ox 91 O2 Delivery Nasal Can[place] O2 Flow Rate 2.00 Intake and Output 09/18/20 07:00 Intake Total 1000 ml Balance 1000 ml Laboratory Tests Test 09/17/20 10:04 09/17/20 10:05 09/17/20 12:03 09/17/20 12:51 White Blood Count 8.3 10^3/uL Red Blood Count 5.21 10^6/uL Hemoglobin 15.1 g/dL Hematocrit 45.7 % Mean Corpuscular Volume 87.7 fL Mean Corpuscular Hemoglobin 29.0 pg Mean Corpuscular Hemoglobin Concent 33.0 g/dL Red Cell Distribution Width 12.5 % Platelet Count 339 10^3/uL Mean Platelet Volume 10.1 fL Neutrophils (%) (Auto) 74.7 % Lymphocytes (%) (Auto) 17.2 % Monocytes (%) (Auto) 7.5 % Neutrophils # (Auto) 6.2 10^3/uL Lymphocytes # (Auto) 1.43 10^3/uL1 Monocytes # (Auto) 0.6 10^3/uL Absolute Immature Granulocyte (auto 0.04 10^3 u/L Absolute Eosinophils (auto) 0.0 10^3/uL Immature Granulocytes % 0.50 % Eosinophils % 0.0 % Basophils % 0.1 % Basophils # 0.0 10^3/uL Prothrombin Time 9.8 SEC Prothrombin Time INR (Non-Therap) 1.0 Activated Partial Thromboplast Time 24.1 SEC Sodium Level 136 mmol/L Potassium Level 4.5 mmol/L Chloride Level 101.0 mmol/L Carbon Dioxide Level 23.3 mmol/L Anion Gap 16.2 Blood Urea Nitrogen 13 mg/dL Creatinine 0.81 mg/dL Estimated GFR () 83.4 Est GFR (CKD-EPI)(Non-Afr [place]) 68.9 BUN/Creatinine Ratio 16.0 Glucose Level 91 mg/dL Calcium Level 9.0 mg/dL Total Bilirubin 0.5 mg/dL Aspartate Amino Transf (AST/SGOT) 53 U/L Alanine Aminotransferase (ALT/SGPT) 37 U/L Alkaline Phosphatase 64 U/L Total Protein 7.0 g/dL Albumin 3.1 g/dL Globulin 3.9 Albumin/Globulin Ratio 0.794 Amylase Level 53 U/L Lipase 139 U/L Helicobacter pylori Screen POSITIVE Urine Collection Type CCMS Urine Color YELLOW Urine Appearance CLEAR Urine Bilirubin NEGATIVE MG/DL Urine Ketones NEGATIVE Urine Specific [place] 1.015 Urine pH 7.0 Urine Protein NEGATIVE Urine Urobilinogen NEGATIVE Urine Nitrate NEGATIVE Urine Leukocyte Esterase NEGATIVE Urine Blood TRACE Urine RBC 0-2 RBC/HPF Urine WBC 0-2 WBC/HPF Urine Squamous Epithelial Cells RARE #/HPF Urine Bacteria RARE Urine Glucose NORMAL SARS-CoV-2 Antigen (Rapid) NEGATIVE Test 09/17/20 17:00 09/17/20 23:47 09/18/20 05:25 Erythrocyte Sedimentation Rate 6 mm/hr Lactic Acid Level 1.0 mmol/L Troponin I < 0.02 ng/mL C-Reactive Protein 9.47 mg/dL White Blood Count 11.4 10^3/uL Red Blood Count 4.35 10^6/uL Hemoglobin 13.0 g/dL Hematocrit 38.6 % Mean Corpuscular Volume 88.7 fL Mean Corpuscular Hemoglobin 29.9 pg Mean Corpuscular Hemoglobin Concent 33.7 g/dL Red Cell Distribution Width 12.7 % Platelet Count 295 10^3/uL Mean Platelet Volume 10.0 fL Neutrophils (%) (Auto) 84.2 % Lymphocytes (%) (Auto) 8.1 % Monocytes (%) (Auto) 7.1 % Neutrophils # (Auto) 9.6 10^3/uL Lymphocytes # (Auto) 0.92 10^3/uL1 Monocytes # (Auto) 0.8 10^3/uL Absolute Immature Granulocyte (auto 0.06 10^3 u/L Absolute Eosinophils (auto) 0.0 10^3/uL Immature Granulocytes % 0.50 % Eosinophils % 0.0 % Basophils % 0.1 % Basophils # 0.0 10^3/uL Prothrombin Time 11.1 SEC Prothrombin Time INR (Non-Therap) 1.1 Sodium Level 136 mmol/L Potassium Level 3.1 mmol/L Chloride Level 100.0 mmol/L Carbon Dioxide Level 28.3 mmol/L Anion Gap 10.8 Blood Urea Nitrogen 8 mg/dL Creatinine 0.51 mg/dL Estimated GFR () 142.3 Est GFR (CKD-EPI)(Non-Afr [place]) 117.6 BUN/Creatinine Ratio 15.0 Glucose Level 105 mg/dL Hemoglobin A1c 6.0 % Calcium Level 8.1 mg/dL Total Bilirubin 0.7 mg/dL Aspartate Amino Transf (AST/SGOT) 48 U/L Alanine Aminotransferase (ALT/SGPT) 47 U/L Alkaline Phosphatase 57 U/L Total Protein 5.7 g/dL Albumin 2.4 g/dL Globulin 3.3 Albumin/Globulin Ratio 0.727 Current Medications Medications (Trade) Dose Ordered Sig/Rosemary PRN Reason Start Time Stop Time Status Last Admin Fentanyl Citrate (Sublimaze) 100 mcg Q4H PRN PAIN 4 - 6 09/17/20 12:30 10/17/20 12:29 09/17/20 16:55 Levothyroxine Sodium (Synthroid) 100 mcg ACB 09/18/20 06:30 10/18/20 06:29 09/18/20 05:53 Morphine Sulfate (Morphine Sulfate) 2 mg Q3HR PRN PAIN 4 - 6 09/17/20 23:30 10/17/20 23:29 09/18/20 08:45 Ondansetron HCl (Zofran) 4 mg Q4H PRN INDIGESTION 09/17/20 12:30 10/17/20 12:29 09/18/20 05:32 Pantoprazole Sodium (Protonix Iv) 40 mg DAILY 09/18/20 09:00 10/18/20 08:59 09/18/20 08:16 Simethicone (Mylicon) 80 mg Q6H PRN INDIGESTION 09/17/20 21:30 10/17/20 21:29 09/17/20 22:17 Sepsis Infection Criteria Pres: Suspected Infection LEVEL 1 SEPSIS INFECTION CRITE: Abdominal Pain LEVEL 2-SIRS (LIST ALL THAT AP: None/Not assessed Cardiovascular Evidence: Not Assessed or None Hematologic Evidence: None/Not assessed Hepatic Evidence: None/Not assessed Metabolic Evidence: None/Not assessed Neurological Evidence: None/Not assessed Respiratory Evidence: None/Not assessed Renal Evidence: None/Not assessed O2 Sat by Pulse Oximetry: 91 Oxygen Flow Rate: 2.00 Assessment/Plan Assessment/Plan Assessment/Plan 1) Abdominal pain: CT shows enterocolitis, will get a sed rate and a CRP for further evaluation. Patient n.p.o. overnight will advance diet to clears as tolerated. Pain medications will be available to her as needed, but reducing use of opiates due to patient complaining of gas and difficulty having bowel movement, will give magnesium citrate, simethicone and stool softners. Will charly at with Zosyn pending improvement in leukocytosis 2) Hypothyroidism: Continue on current dose of levothyroxine. CODE STATUS: Full code Diet: N.p.o. will advance to clears as tolerated DVT prophylaxis: RAMAN Pride MD Sep 18, 2020 09:15
[2020-09-18] MEDS: ZOSYN 3.375 GM 3.375 GM in NS 100ML 100 ML IV SCH ×3 (09:30→21:49)
[2020-09-18] MEDS ORDERED: NS 100ML 100 ML IV ONE (09:38)
[2020-09-18] MEDS ORDERED: MAGNESIUM CITRATE PO STA (10:32)
[2020-09-18] MEDS: COLACE PO SCH ×2 (11:03→21:46)
[2020-09-18] MEDS: LOVENOX SQ SCH (11:04)
--- NOTE | 2020-09-18 11:04 | NUR ---
PT FINISHED THE MAG CITRATE TOLERATED WELL
[2020-09-18] MEDS: TORADOL IV PRN (14:42)
[2020-09-18] MEDS: TYLENOL PO PRN (22:12)
[2020-09-19 00:39] VITALS: BP 130/70
[2020-09-19] MEDS: ZOSYN 3.375 GM 3.375 GM in NS 100ML 100 ML IV SCH ×4 (03:30→21:02)
[2020-09-19 04:15] VITALS: BP 143/70
[2020-09-19] MEDS: LACTATED RINGERS 1,000 ML IV SCH ×2 (05:09→17:03)
[2020-09-19 05:55] LABS: BASOPHIL % 0.1 % (0.0-0.2); LYMPHOCYTES # 1.13 10^3/uL1 (1.0-4.8); LYMPHOCYTES % 7.8 % (24.0-44.0); MEAN CORP HGB 29.7 pg (26-34); MONOCYTES # 0.8 10^3/uL (0.3-0.8); MONOCYTES % 5.7 % (5.0-12.0); NEUTROPHIL # 12.5 10^3/uL (1.8-7.7); NEUTROPHILS % 85.9 % (41.0-85.0); PLATELET COUNT 282 10^3/uL (150-400); RED CELL DISTRIBUTION WIDTH 12.7 % (11.5-14.5)
[2020-09-19] MEDS: SYNTHROID PO SCH (06:32)
[2020-09-19 07:01] LABS: CALCIUM 8.5 mg/dL (8.4-10.5); CARBON DIOXIDE 27.6 mmol/L (20.0-32)
[2020-09-19 08:20] VITALS: BP 111/52
--- NOTE | 2020-09-19 08:35 | PRM.PN ---
Subjective Subjective Date: Sep 19, 2020 Time: 08:34 Subjective Patient is feeling better today she has been able to tolerate clear liquids and has passed stool her abdominal pain is decreasing and she feels like she can try to advance her diet to regular today. Patient History: Cerebrovascular accident (CVA) in mother FHx: GI cancer VTE VTE Risk Total Score: 4 VTE Risk Score VTE Risk: Score 0-1 = Low Risk (Aggressive mobilization; early ambulation; no VTE prophylaxis required) Score 2: Moderate Risk (Intermittent/Pneumatic Compression Device OR Lovenox/Heparin/Coumadin) Score 3-4: High Risk (Intermittent/Pneumatic Compression Device AND Lovenox/Heparin/Coumadin) Score > or =5: Highest Risk (Intermittent/Pneumatic Compression Device AND Lovenox/Heparin/Coumadin) Antico:Hep/LMWH/Coum/Xarelto: No Mechanical device ordered: Yes Review of Systems Constitutional: No: Fever, Chills, Sweats, Weakness, Malaise, Other Eyes: No: Pain, Vision change, Conjunctivae inflammation, Eyelid inflammation, Other, Redness ENT: No: Ear pain, Ear discharge, Nose pain, Nose discharge, Nose congestion, Mouth pain, Mouth swelling, Throat pain, Throat swelling, Other Respiratory: No: Cough, Dry, Shortness of breath, SOB with excertion, Wheezing, Hemoptysis, Pleuritic Pain, Sputum, Wheezing, Other Cardiovascular: No: Chest Pain, Palpitations, Orthopnea, Paroxysmal Noc. Dyspnea, Edema, Lt Headedness, Other Gastrointestinal: No: Nausea, Vomiting, Abdominal Pain, Diarrhea, Constipation, Melena, Hematochezia, Other Genitourinary: No Dysuria, No Frequency, No Incontinence, No Hematuria, No Retention, No Other Musculoskeletal: No: other, neck pain, shoulder pain, arm pain, back pain, hand pain, leg pain, foot pain Skin: No: Rash, Lesions, Jaundice, Bruising, Other Neurological: No: Weakness, Numbness, Incoordination, Change in speech, Confusion, Seizures, Other Allergies: Coded Allergies: hydrocodone (Verified Allergy, Unknown, 09/17/20) promethazine HCl (Verified Allergy, Unknown, 09/17/20) Scheduled Levothyroxine Sodium (Synthroid), 100 MCG PO DAILY, (Reported) Prednisone (Prednisone), 20 MG PO DAILY24 Objective Vitals and I/O Vital Sign - Last 24 Hours 09/18/20 09/18/20 09/18/20 09/18/20 09:14 11:24 11:45 16:41 Temp 98.8 97.7 98.4 Pulse 76 82 78 Resp 18 18 18 B/P (MAP) 146/73 (97) 136/64 (88) 132/66 (88) Pulse Ox 91 93 95 O2 Delivery Nasal Canula Nasal Cannula Nasal Canula Nasal Canula O2 Flow Rate 2.00 2.00 2.00 2.00 09/18/20 09/18/20 09/19/20 09/19/20 20:11 21:00 00:39 04:15 Temp 97.5 97.5 98.1 Pulse 64 60 62 Resp 20 18 18 B/P (MAP) 141/70 (93) 130/70 (90) 143/70 (94) Pulse Ox 94 94 95 O2 Delivery Nasal Cannula O2 Flow Rate 2.00 Intake and Output 09/19/20 07:00 Intake Total 210 ml Balance 210 ml General: Alert, Oriented X3, Cooperative, severe distress HEENT: Atraumatic, PERRLA, EOMI, Mucous membr. moist/pink Neck: Supple, No JVD Lungs: Clear to auscultation, Normal air movement Heart: Regular rate, No murmurs Abdomen: Normal bowel sounds, Soft, No tenderness, Other Extremities: No clubbing, No edema, Normal pulses, No tenderness/swelling Neuro: Normal gait, Normal speech, Strength at 5/5 X4 ext, Cranial nerves 3-12 NL, Reflexes 2+ Psych/Mental Status: Mental status NL, Mood NL All Results(Lab/Rad) Laboratory Tests Test 09/17/20 10:04 09/17/20 10:05 09/17/20 12:03 09/17/20 12:51 White Blood Count 8.3 10^3/uL Red Blood Count 5.21 10^6/uL Hemoglobin 15.1 g/dL Hematocrit 45.7 % Mean Corpuscular Volume 87.7 fL Mean Corpuscular Hemoglobin 29.0 pg Mean Corpuscular Hemoglobin Concent 33.0 g/dL Red Cell Distribution Width 12.5 % Platelet Count 339 10^3/uL Mean Platelet Volume 10.1 fL Neutrophils (%) (Auto) 74.7 % Lymphocytes (%) (Auto) 17.2 % Monocytes (%) (Auto) 7.5 % Neutrophils # (Auto) 6.2 10^3/uL Lymphocytes # (Auto) 1.43 10^3/uL1 Monocytes # (Auto) 0.6 10^3/uL Absolute Immature Granulocyte (auto 0.04 10^3 u/L Absolute Eosinophils (auto) 0.0 10^3/uL Immature Granulocytes % 0.50 % Eosinophils % 0.0 % Basophils % 0.1 % Basophils # 0.0 10^3/uL Prothrombin Time 9.8 SEC Prothrombin Time INR (Non-Therap) 1.0 Activated Partial Thromboplast Time 24.1 SEC Sodium Level 136 mmol/L Potassium Level 4.5 mmol/L Chloride Level 101.0 mmol/L Carbon Dioxide Level 23.3 mmol/L Anion Gap 16.2 Blood Urea Nitrogen 13 mg/dL Creatinine 0.81 mg/dL Estimated GFR () 83.4 Est GFR (CKD-EPI)(Non-Afr [place]) 68.9 BUN/Creatinine Ratio 16.0 Glucose Level 91 mg/dL Calcium Level 9.0 mg/dL Total Bilirubin 0.5 mg/dL Aspartate Amino Transf (AST/SGOT) 53 U/L Alanine Aminotransferase (ALT/SGPT) 37 U/L Alkaline Phosphatase 64 U/L Total Protein 7.0 g/dL Albumin 3.1 g/dL Globulin 3.9 Albumin/Globulin Ratio 0.794 Amylase Level 53 U/L Lipase 139 U/L Helicobacter pylori Screen POSITIVE Urine Collection Type CCMS Urine Color YELLOW Urine Appearance CLEAR Urine Bilirubin NEGATIVE MG/DL Urine Ketones NEGATIVE Urine Specific [place] 1.015 Urine pH 7.0 Urine Protein NEGATIVE Urine Urobilinogen NEGATIVE Urine Nitrate NEGATIVE Urine Leukocyte Esterase NEGATIVE Urine Blood TRACE Urine RBC 0-2 RBC/HPF Urine WBC 0-2 WBC/HPF Urine Squamous Epithelial Cells RARE #/HPF Urine Bacteria RARE Urine Glucose NORMAL SARS-CoV-2 Antigen (Rapid) NEGATIVE Test 09/17/20 17:00 09/17/20 23:47 09/18/20 05:25 Erythrocyte Sedimentation Rate 6 mm/hr Lactic Acid Level 1.0 mmol/L Troponin I < 0.02 ng/mL C-Reactive Protein 9.47 mg/dL White Blood Count 11.4 10^3/uL Red Blood Count 4.35 10^6/uL Hemoglobin 13.0 g/dL Hematocrit 38.6 % Mean Corpuscular Volume 88.7 fL Mean Corpuscular Hemoglobin 29.9 pg Mean Corpuscular Hemoglobin Concent 33.7 g/dL Red Cell Distribution Width 12.7 % Platelet Count 295 10^3/uL Mean Platelet Volume 10.0 fL Neutrophils (%) (Auto) 84.2 % Lymphocytes (%) (Auto) 8.1 % Monocytes (%) (Auto) 7.1 % Neutrophils # (Auto) 9.6 10^3/uL Lymphocytes # (Auto) 0.92 10^3/uL1 Monocytes # (Auto) 0.8 10^3/uL Absolute Immature Granulocyte (auto 0.06 10^3 u/L Absolute Eosinophils (auto) 0.0 10^3/uL Immature Granulocytes % 0.50 % Eosinophils % 0.0 % Basophils % 0.1 % Basophils # 0.0 10^3/uL Prothrombin Time 11.1 SEC Prothrombin Time INR (Non-Therap) 1.1 Sodium Level 136 mmol/L Potassium Level 3.1 mmol/L Chloride Level 100.0 mmol/L Carbon Dioxide Level 28.3 mmol/L Anion Gap 10.8 Blood Urea Nitrogen 8 mg/dL Creatinine 0.51 mg/dL Estimated GFR () 142.3 Est GFR (CKD-EPI)(Non-Afr [place]) 117.6 BUN/Creatinine Ratio 15.0 Glucose Level 105 mg/dL Hemoglobin A1c 6.0 % Calcium Level 8.1 mg/dL Total Bilirubin 0.7 mg/dL Aspartate Amino Transf (AST/SGOT) 48 U/L Alanine Aminotransferase (ALT/SGPT) 47 U/L Alkaline Phosphatase 57 U/L Total Protein 5.7 g/dL Albumin 2.4 g/dL Globulin 3.3 Albumin/Globulin Ratio 0.727 Current Medications Medications (Trade) Dose Ordered Sig/Rosemary Route PRN Reason Start Time Stop Time Status Last Admin Dose Admin Morphine Sulfate (Morphine Sulfate) 2 mg STAT STAT IV 09/17/20 10:07 09/17/20 10:09 DC Ondansetron HCl (Zofran) 4 mg STAT STAT IV 09/17/20 10:07 09/17/20 10:09 DC 09/17/20 10:22 Sodium Chloride 1,000 ml @ 0 mls/hr Q0M ONCE IV 09/17/20 10:30 09/17/20 10:31 DC 09/17/20 10:22 Sodium Chloride 1,000 ml @ ud STK-MED ONCE .ROUTE 09/17/20 10:14 09/17/20 10:14 DC Ondansetron HCl (Zofran) 4 mg STK-MED ONCE .ROUTE 09/17/20 10:14 09/17/20 10:14 DC Morphine Sulfate (Morphine Sulfate) 4 mg STK-MED ONCE .ROUTE 09/17/20 10:14 09/17/20 10:15 DC Morphine Sulfate (Morphine Sulfate) 4 mg STAT STAT IV 09/17/20 10:24 09/17/20 10:26 DC 09/17/20 10:22 Fentanyl Citrate (Sublimaze) 50 mcg STAT STAT IV 09/17/20 11:27 09/17/20 11:28 DC 09/17/20 11:40 Fentanyl Citrate (Sublimaze) 50 mcg STK-MED ONCE .ROUTE 09/17/20 11:28 09/17/20 11:28 DC Fentanyl Citrate (Sublimaze) 100 mcg Q4H PRN IV PAIN 4 - 6 09/17/20 12:30 10/17/20 12:29 09/17/20 16:55 Ondansetron HCl (Zofran) 4 mg Q4H PRN IV INDIGESTION 09/17/20 12:30 10/17/20 12:29 09/18/20 05:32 Charcoal (Actidose-Aqua) 50 gm STK-MED ONCE .ROUTE 09/17/20 13:16 09/17/20 13:16 DC Pantoprazole Sodium (Protonix) 40 mg DAILY PO 09/18/20 09:00 09/18/20 00:11 DC Levothyroxine Sodium (Synthroid) 100 mcg ACB PO 09/18/20 06:30 10/18/20 06:29 09/18/20 05:53 Simethicone (Mylicon) 80 mg Q6H PRN PO INDIGESTION 09/17/20 21:30 10/17/20 21:29 09/17/20 22:17 Simethicone (Genasyme) 80 mg STK-MED ONCE .ROUTE 09/17/20 21:33 09/17/20 21:33 DC Morphine Sulfate (Morphine Sulfate) 2 mg STK-MED ONCE .ROUTE 09/17/20 23:13 09/17/20 23:13 DC Morphine Sulfate (Morphine Sulfate) 2 mg Q3HR PRN IV PAIN 4 - 6 09/17/20 23:30 10/17/20 23:29 09/18/20 08:45 Pantoprazole Sodium (Protonix Iv) 40 mg DAILY IV 09/18/20 09:00 10/18/20 08:59 09/18/20 08:16 Course Sepsis Screening Results: Posi: NEGATIVE Sepsis Qualifier/Stage: NO DEFINITE RISK Duration or Total Time Spent w: 22M Vitals & review Data Vital Sign - Last 24 Hours 09/17/20 09/17/20 09/17/20 09/17/20 10:01 10:01 10:01 10:42 Temp 98.2 98.2 98.2 Pulse 85 85 85 73 Resp 20 20 20 20 B/P (MAP) 167/100 (122) 123/71 (88) Pulse Ox 97 95 O2 Delivery Room Air Room Air 09/17/20 09/17/20 09/17/20 09/17/20 13:08 14:30 15:10 15:21 Temp 98.2 97.5 Pulse 75 71 73 Resp 20 20 18 B/P (MAP) 151/62 (91) 135/68 (90) 158/83 (108) Pulse Ox 95 96 O2 Delivery Room Air Nasal Canula Nasal Canula Nasal Cannula O2 Flow Rate 2.00 2.00 2.00 09/17/20 09/17/20 09/18/20 09/18/20 15:36 20:51 01:04 05:06 Temp 98.9 98.2 98.5 Pulse 80 70 76 Resp 18 18 18 B/P (MAP) 135/90 (105) 134/68 (90) 133/65 (87) Pulse Ox 94 95 96 O2 Delivery Nasal Cannula O2 Flow Rate 2.00 09/18/20 07:15 Temp 98.8 Pulse 76 Resp 18 B/P (MAP) 146/73 (97) Pulse Ox 91 O2 Delivery Nasal Canula O2 Flow Rate 2.00 Intake and Output 09/18/20 07:00 Intake Total 1000 ml Balance 1000 ml Laboratory Tests Test 09/17/20 10:04 09/17/20 10:05 09/17/20 12:03 09/17/20 12:51 White Blood Count 8.3 10^3/uL Red Blood Count 5.21 10^6/uL Hemoglobin 15.1 g/dL Hematocrit 45.7 % Mean Corpuscular Volume 87.7 fL Mean Corpuscular Hemoglobin 29.0 pg Mean Corpuscular Hemoglobin Concent 33.0 g/dL Red Cell Distribution Width 12.5 % Platelet Count 339 10^3/uL Mean Platelet Volume 10.1 fL Neutrophils (%) (Auto) 74.7 % Lymphocytes (%) (Auto) 17.2 % Monocytes (%) (Auto) 7.5 % Neutrophils # (Auto) 6.2 10^3/uL Lymphocytes # (Auto) 1.43 10^3/uL1 Monocytes # (Auto) 0.6 10^3/uL Absolute Immature Granulocyte (auto 0.04 10^3 u/L Absolute Eosinophils (auto) 0.0 10^3/uL Immature Granulocytes % 0.50 % Eosinophils % 0.0 % Basophils % 0.1 % Basophils # 0.0 10^3/uL Prothrombin Time 9.8 SEC Prothrombin Time INR (Non-Therap) 1.0 Activated Partial Thromboplast Time 24.1 SEC Sodium Level 136 mmol/L Potassium Level 4.5 mmol/L Chloride Level 101.0 mmol/L Carbon Dioxide Level 23.3 mmol/L Anion Gap 16.2 Blood Urea Nitrogen 13 mg/dL Creatinine 0.81 mg/dL Estimated GFR () 83.4 Est GFR (CKD-EPI)(Non-Afr [place]) 68.9 BUN/Creatinine Ratio 16.0 Glucose Level 91 mg/dL Calcium Level 9.0 mg/dL Total Bilirubin 0.5 mg/dL Aspartate Amino Transf (AST/SGOT) 53 U/L Alanine Aminotransferase (ALT/SGPT) 37 U/L Alkaline Phosphatase 64 U/L Total Protein 7.0 g/dL Albumin 3.1 g/dL Globulin 3.9 Albumin/Globulin Ratio 0.794 Amylase Level 53 U/L Lipase 139 U/L Helicobacter pylori Screen POSITIVE Urine Collection Type CCMS Urine Color YELLOW Urine Appearance CLEAR Urine Bilirubin NEGATIVE MG/DL Urine Ketones NEGATIVE Urine Specific [place] 1.015 Urine pH 7.0 Urine Protein NEGATIVE Urine Urobilinogen NEGATIVE Urine Nitrate NEGATIVE Urine Leukocyte Esterase NEGATIVE Urine Blood TRACE Urine RBC 0-2 RBC/HPF Urine WBC 0-2 WBC/HPF Urine Squamous Epithelial Cells RARE #/HPF Urine Bacteria RARE Urine Glucose NORMAL SARS-CoV-2 Antigen (Rapid) NEGATIVE Test 09/17/20 17:00 09/17/20 23:47 09/18/20 05:25 Erythrocyte Sedimentation Rate 6 mm/hr Lactic Acid Level 1.0 mmol/L Troponin I < 0.02 ng/mL C-Reactive Protein 9.47 mg/dL White Blood Count 11.4 10^3/uL Red Blood Count 4.35 10^6/uL Hemoglobin 13.0 g/dL Hematocrit 38.6 % Mean Corpuscular Volume 88.7 fL Mean Corpuscular Hemoglobin 29.9 pg Mean Corpuscular Hemoglobin Concent 33.7 g/dL Red Cell Distribution Width 12.7 % Platelet Count 295 10^3/uL Mean Platelet Volume 10.0 fL Neutrophils (%) (Auto) 84.2 % Lymphocytes (%) (Auto) 8.1 % Monocytes (%) (Auto) 7.1 % Neutrophils # (Auto) 9.6 10^3/uL Lymphocytes # (Auto) 0.92 10^3/uL1 Monocytes # (Auto) 0.8 10^3/uL Absolute Immature Granulocyte (auto 0.06 10^3 u/L Absolute Eosinophils (auto) 0.0 10^3/uL Immature Granulocytes % 0.50 % Eosinophils % 0.0 % Basophils % 0.1 % Basophils # 0.0 10^3/uL Prothrombin Time 11.1 SEC Prothrombin Time INR (Non-Therap) 1.1 Sodium Level 136 mmol/L Potassium Level 3.1 mmol/L Chloride Level 100.0 mmol/L Carbon Dioxide Level 28.3 mmol/L Anion Gap 10.8 Blood Urea Nitrogen 8 mg/dL Creatinine 0.51 mg/dL Estimated GFR () 142.3 Est GFR (CKD-EPI)(Non-Afr [place]) 117.6 BUN/Creatinine Ratio 15.0 Glucose Level 105 mg/dL Hemoglobin A1c 6.0 % Calcium Level 8.1 mg/dL Total Bilirubin 0.7 mg/dL Aspartate Amino Transf (AST/SGOT) 48 U/L Alanine Aminotransferase (ALT/SGPT) 47 U/L Alkaline Phosphatase 57 U/L Total Protein 5.7 g/dL Albumin 2.4 g/dL Globulin 3.3 Albumin/Globulin Ratio 0.727 Current Medications Medications (Trade) Dose Ordered Sig/Rosemary PRN Reason Start Time Stop Time Status Last Admin Fentanyl Citrate (Sublimaze) 100 mcg Q4H PRN PAIN 4 - 6 09/17/20 12:30 10/17/20 12:29 09/17/20 16:55 Levothyroxine Sodium (Synthroid) 100 mcg ACB 09/18/20 06:30 10/18/20 06:29 09/18/20 05:53 Morphine Sulfate (Morphine Sulfate) 2 mg Q3HR PRN PAIN 4 - 6 09/17/20 23:30 10/17/20 23:29 09/18/20 08:45 Ondansetron HCl (Zofran) 4 mg Q4H PRN INDIGESTION 09/17/20 12:30 10/17/20 12:29 09/18/20 05:32 Pantoprazole Sodium (Protonix Iv) 40 mg DAILY 09/18/20 09:00 10/18/20 08:59 09/18/20 08:16 Simethicone (Mylicon) 80 mg Q6H PRN INDIGESTION 09/17/20 21:30 10/17/20 21:29 09/17/20 22:17 Sepsis Infection Criteria Pres: Suspected Infection LEVEL 1 SEPSIS INFECTION CRITE: Abdominal Pain LEVEL 2-SIRS (LIST ALL THAT AP: None/Not assessed Cardiovascular Evidence: Not Assessed or None Hematologic Evidence: None/Not assessed Hepatic Evidence: None/Not assessed Metabolic Evidence: None/Not assessed Neurological Evidence: None/Not assessed Respiratory Evidence: None/Not assessed Renal Evidence: None/Not assessed O2 Sat by Pulse Oximetry: 95 Oxygen Flow Rate: 2.00 Assessment/Plan Assessment/Plan Assessment/Plan 1) Abdominal pain: CT shows enterocolitis, will get a sed rate and a CRP for further evaluation. Pain medications will be available to her as needed, but reducing use of opiates due to patient complaining of gas and difficulty having bowel movement, will give magnesium citrate, simethicone and stool softners. Patient passed stool and is no longer taking opiates for pain control. Will treat with Zosyn leukocytosis improving 2) Hypothyroidism: Continue on current dose of levothyroxine. CODE STATUS: Full code Diet: Advanced to clears and tolerating. Will advance to regular diet today DVT prophylaxis: RAMAN Pride MD Sep 19, 2020 08:35
[2020-09-19] MEDS: COLACE PO SCH ×2 (08:46→21:02)
[2020-09-19] MEDS: PROTONIX IV IV SCH (08:46)
[2020-09-19] MEDS: TORADOL IV PRN (09:00)
[2020-09-19] MEDS: PREDNISONE PO SCH (09:00)
[2020-09-19] MEDS: EFFER-K 10 MEQ TABLET EFF PO SCH (10:30)
[2020-09-19] MEDS ORDERED: KCL 20MEQ/100ML 100 ML IV ONE (10:30)
[2020-09-19] MEDS: LOVENOX SQ SCH (11:00)
--- NOTE | 2020-09-19 13:10 | NUR ---
PT COMPLAIN THAT SHE CANNOT URINATE SHE HAD BMX2 SINCE MORNING BUT STATES SHE URINATED A LITTLE AND STILL FEEL LIKE HER BLADDER IS FULL BLADDER SCAN DONE SHOWED NO URINE MD NOTIFIED WILL CONTINUE TO MONITOR.
[2020-09-19 13:18] VITALS: BP 138/66
--- NOTE | 2020-09-19 13:40 | NUR ---
WENT IN THE ROOM TO STRAIGHT CATH PT PER ORDER PT STATED SHE ALREADY URINATED IN THE BED BED CHANGED PT KEPT CLEAN AND DRY
[2020-09-19 16:00] VITALS: BP 133/57
[2020-09-19] MEDS: TYLENOL PO PRN (17:30)
[2020-09-19 20:49] VITALS: BP 141/58
[2020-09-20 00:57] VITALS: BP 120/57
[2020-09-20] MEDS: LACTATED RINGERS 1,000 ML IV SCH (02:39)
[2020-09-20] MEDS: ZOSYN 3.375 GM 3.375 GM in NS 100ML 100 ML IV SCH ×2 (02:39→08:59)
[2020-09-20] MEDS: TYLENOL PO PRN (04:56)
[2020-09-20 05:20] VITALS: BP 135/61
[2020-09-20 05:25] LABS: BASOPHIL % 0.1 % (0.0-0.2); EOSINOPHIL % 0.1 % (0.0-5.0); LYMPHOCYTES # 1.17 10^3/uL1 (1.0-4.8); LYMPHOCYTES % 10.6 % (24.0-44.0); MONOCYTES # 0.6 10^3/uL (0.3-0.8); MONOCYTES % 5.8 % (5.0-12.0); NEUTROPHIL # 9.2 10^3/uL (1.8-7.7); NEUTROPHILS % 82.9 % (41.0-85.0); PLATELET COUNT 353 10^3/uL (150-400); RED CELL DISTRIBUTION WIDTH 12.9 % (11.5-14.5)
[2020-09-20] MEDS: SYNTHROID PO SCH (05:41)
[2020-09-20 06:44] LABS: CALCIUM 8.2 mg/dL (8.4-10.5); CARBON DIOXIDE 27.2 mmol/L (20.0-32)
--- NOTE | 2020-09-20 07:23 | PRM.PN ---
Subjective Subjective Date: Sep 20, 2020 Time: 07:22 Subjective Patient is tolerating a regular diet, her abdominal pain has resolved and she is requesting to be discharged home today Patient History: Cerebrovascular accident (CVA) in mother FHx: GI cancer VTE VTE Risk Total Score: 4 VTE Risk Score VTE Risk: Score 0-1 = Low Risk (Aggressive mobilization; early ambulation; no VTE prophylaxis required) Score 2: Moderate Risk (Intermittent/Pneumatic Compression Device OR Lovenox/Heparin/Coumadin) Score 3-4: High Risk (Intermittent/Pneumatic Compression Device AND Lovenox/Heparin/Coumadin) Score > or =5: Highest Risk (Intermittent/Pneumatic Compression Device AND Lovenox/Heparin/Coumadin) Antico:Hep/LMWH/Coum/Xarelto: No Mechanical device ordered: Yes Review of Systems Constitutional: No: Fever, Chills, Sweats, Weakness, Malaise, Other Eyes: No: Pain, Vision change, Conjunctivae inflammation, Eyelid inflammation, Other, Redness ENT: No: Ear pain, Ear discharge, Nose pain, Nose discharge, Nose congestion, Mouth pain, Mouth swelling, Throat pain, Throat swelling, Other Respiratory: No: Cough, Dry, Shortness of breath, SOB with excertion, Wheezing, Hemoptysis, Pleuritic Pain, Sputum, Wheezing, Other Cardiovascular: No: Chest Pain, Palpitations, Orthopnea, Paroxysmal Noc. Dyspnea, Edema, Lt Headedness, Other Gastrointestinal: No: Nausea, Vomiting, Abdominal Pain, Diarrhea, Constipation, Melena, Hematochezia, Other Genitourinary: No Dysuria, No Frequency, No Incontinence, No Hematuria, No Retention, No Other Musculoskeletal: No: other, neck pain, shoulder pain, arm pain, back pain, hand pain, leg pain, foot pain Skin: No: Rash, Lesions, Jaundice, Bruising, Other Neurological: No: Weakness, Numbness, Incoordination, Change in speech, Confusion, Seizures, Other Allergies: Coded Allergies: hydrocodone (Verified Allergy, Unknown, 09/17/20) promethazine HCl (Verified Allergy, Unknown, 09/17/20) Scheduled Levothyroxine Sodium (Synthroid), 100 MCG PO DAILY, (Reported) Prednisone (Prednisone), 20 MG PO DAILY24 Objective Vitals and I/O Vital Sign - Last 24 Hours 09/19/20 09/19/20 09/19/20 09/19/20 08:20 09:11 13:18 16:00 Temp 98.1 97.6 97.8 Pulse 69 68 75 Resp 18 18 18 B/P (MAP) 111/52 (71) 138/66 (90) 133/57 (82) Pulse Ox 94 94 94 O2 Delivery Room Air Nasal Cannula Room Air O2 Flow Rate 2.00 09/19/20 09/20/20 09/20/20 09/20/20 20:49 00:08 00:57 05:20 Temp 97.7 97.1 98.1 Pulse 67 55 69 Resp 18 18 18 B/P (MAP) 141/58 (85) 120/57 (78) 135/61 (85) Pulse Ox 94 94 95 O2 Delivery Nasal Cannula O2 Flow Rate 2.00 Intake and Output 09/20/20 07:00 Intake Total 400 ml Balance 400 ml General: Alert, Oriented X3, Cooperative, severe distress HEENT: Atraumatic, PERRLA, EOMI, Mucous membr. moist/pink Lungs: Clear to auscultation, Normal air movement Heart: Regular rate, No murmurs Abdomen: Normal bowel sounds, Soft, No tenderness, No hepatospenomegaly, Other Extremities: No clubbing, No edema, Normal pulses, No tenderness/swelling Neuro: Normal gait, Normal speech, Strength at 5/5 X4 ext, Cranial nerves 3-12 NL, Reflexes 2+ Psych/Mental Status: Mental status NL, Mood NL All Results(Lab/Rad) Laboratory Tests Test 09/17/20 10:04 09/17/20 10:05 09/17/20 12:03 09/17/20 12:51 White Blood Count 8.3 10^3/uL Red Blood Count 5.21 10^6/uL Hemoglobin 15.1 g/dL Hematocrit 45.7 % Mean Corpuscular Volume 87.7 fL Mean Corpuscular Hemoglobin 29.0 pg Mean Corpuscular Hemoglobin Concent 33.0 g/dL Red Cell Distribution Width 12.5 % Platelet Count 339 10^3/uL Mean Platelet Volume 10.1 fL Neutrophils (%) (Auto) 74.7 % Lymphocytes (%) (Auto) 17.2 % Monocytes (%) (Auto) 7.5 % Neutrophils # (Auto) 6.2 10^3/uL Lymphocytes # (Auto) 1.43 10^3/uL1 Monocytes # (Auto) 0.6 10^3/uL Absolute Immature Granulocyte (auto 0.04 10^3 u/L Absolute Eosinophils (auto) 0.0 10^3/uL Immature Granulocytes % 0.50 % Eosinophils % 0.0 % Basophils % 0.1 % Basophils # 0.0 10^3/uL Prothrombin Time 9.8 SEC Prothrombin Time INR (Non-Therap) 1.0 Activated Partial Thromboplast Time 24.1 SEC Sodium Level 136 mmol/L Potassium Level 4.5 mmol/L Chloride Level 101.0 mmol/L Carbon Dioxide Level 23.3 mmol/L Anion Gap 16.2 Blood Urea Nitrogen 13 mg/dL Creatinine 0.81 mg/dL Estimated GFR () 83.4 Est GFR (CKD-EPI)(Non-Afr [place]) 68.9 BUN/Creatinine Ratio 16.0 Glucose Level 91 mg/dL Calcium Level 9.0 mg/dL Total Bilirubin 0.5 mg/dL Aspartate Amino Transf (AST/SGOT) 53 U/L Alanine Aminotransferase (ALT/SGPT) 37 U/L Alkaline Phosphatase 64 U/L Total Protein 7.0 g/dL Albumin 3.1 g/dL Globulin 3.9 Albumin/Globulin Ratio 0.794 Amylase Level 53 U/L Lipase 139 U/L Helicobacter pylori Screen POSITIVE Urine Collection Type CCMS Urine Color YELLOW Urine Appearance CLEAR Urine Bilirubin NEGATIVE MG/DL Urine Ketones NEGATIVE Urine Specific [place] 1.015 Urine pH 7.0 Urine Protein NEGATIVE Urine Urobilinogen NEGATIVE Urine Nitrate NEGATIVE Urine Leukocyte Esterase NEGATIVE Urine Blood TRACE Urine RBC 0-2 RBC/HPF Urine WBC 0-2 WBC/HPF Urine Squamous Epithelial Cells RARE #/HPF Urine Bacteria RARE Urine Glucose NORMAL SARS-CoV-2 Antigen (Rapid) NEGATIVE Test 09/17/20 17:00 09/17/20 23:47 09/18/20 05:25 Erythrocyte Sedimentation Rate 6 mm/hr Lactic Acid Level 1.0 mmol/L Troponin I < 0.02 ng/mL C-Reactive Protein 9.47 mg/dL White Blood Count 11.4 10^3/uL Red Blood Count 4.35 10^6/uL Hemoglobin 13.0 g/dL Hematocrit 38.6 % Mean Corpuscular Volume 88.7 fL Mean Corpuscular Hemoglobin 29.9 pg Mean Corpuscular Hemoglobin Concent 33.7 g/dL Red Cell Distribution Width 12.7 % Platelet Count 295 10^3/uL Mean Platelet Volume 10.0 fL Neutrophils (%) (Auto) 84.2 % Lymphocytes (%) (Auto) 8.1 % Monocytes (%) (Auto) 7.1 % Neutrophils # (Auto) 9.6 10^3/uL Lymphocytes # (Auto) 0.92 10^3/uL1 Monocytes # (Auto) 0.8 10^3/uL Absolute Immature Granulocyte (auto 0.06 10^3 u/L Absolute Eosinophils (auto) 0.0 10^3/uL Immature Granulocytes % 0.50 % Eosinophils % 0.0 % Basophils % 0.1 % Basophils # 0.0 10^3/uL Prothrombin Time 11.1 SEC Prothrombin Time INR (Non-Therap) 1.1 Sodium Level 136 mmol/L Potassium Level 3.1 mmol/L Chloride Level 100.0 mmol/L Carbon Dioxide Level 28.3 mmol/L Anion Gap 10.8 Blood Urea Nitrogen 8 mg/dL Creatinine 0.51 mg/dL Estimated GFR () 142.3 Est GFR (CKD-EPI)(Non-Afr [place]) 117.6 BUN/Creatinine Ratio 15.0 Glucose Level 105 mg/dL Hemoglobin A1c 6.0 % Calcium Level 8.1 mg/dL Total Bilirubin 0.7 mg/dL Aspartate Amino Transf (AST/SGOT) 48 U/L Alanine Aminotransferase (ALT/SGPT) 47 U/L Alkaline Phosphatase 57 U/L Total Protein 5.7 g/dL Albumin 2.4 g/dL Globulin 3.3 Albumin/Globulin Ratio 0.727 Current Medications Medications (Trade) Dose Ordered Sig/Rosemary Route PRN Reason Start Time Stop Time Status Last Admin Dose Admin Morphine Sulfate (Morphine Sulfate) 2 mg STAT STAT IV 09/17/20 10:07 09/17/20 10:09 DC Ondansetron HCl (Zofran) 4 mg STAT STAT IV 09/17/20 10:07 09/17/20 10:09 DC 09/17/20 10:22 Sodium Chloride 1,000 ml @ 0 mls/hr Q0M ONCE IV 09/17/20 10:30 09/17/20 10:31 DC 09/17/20 10:22 Sodium Chloride 1,000 ml @ ud STK-MED ONCE .ROUTE 09/17/20 10:14 09/17/20 10:14 DC Ondansetron HCl (Zofran) 4 mg STK-MED ONCE .ROUTE 09/17/20 10:14 09/17/20 10:14 DC Morphine Sulfate (Morphine Sulfate) 4 mg STK-MED ONCE .ROUTE 09/17/20 10:14 09/17/20 10:15 DC Morphine Sulfate (Morphine Sulfate) 4 mg STAT STAT IV 09/17/20 10:24 09/17/20 10:26 DC 09/17/20 10:22 Fentanyl Citrate (Sublimaze) 50 mcg STAT STAT IV 09/17/20 11:27 09/17/20 11:28 DC 09/17/20 11:40 Fentanyl Citrate (Sublimaze) 50 mcg STK-MED ONCE .ROUTE 09/17/20 11:28 09/17/20 11:28 DC Fentanyl Citrate (Sublimaze) 100 mcg Q4H PRN IV PAIN 4 - 6 09/17/20 12:30 10/17/20 12:29 09/17/20 16:55 Ondansetron HCl (Zofran) 4 mg Q4H PRN IV INDIGESTION 09/17/20 12:30 10/17/20 12:29 09/18/20 05:32 Charcoal (Actidose-Aqua) 50 gm STK-MED ONCE .ROUTE 09/17/20 13:16 09/17/20 13:16 DC Pantoprazole Sodium (Protonix) 40 mg DAILY PO 09/18/20 09:00 09/18/20 00:11 DC Levothyroxine Sodium (Synthroid) 100 mcg ACB PO 09/18/20 06:30 10/18/20 06:29 09/18/20 05:53 Simethicone (Mylicon) 80 mg Q6H PRN PO INDIGESTION 09/17/20 21:30 10/17/20 21:29 09/17/20 22:17 Simethicone (Genasyme) 80 mg STK-MED ONCE .ROUTE 09/17/20 21:33 09/17/20 21:33 DC Morphine Sulfate (Morphine Sulfate) 2 mg STK-MED ONCE .ROUTE 09/17/20 23:13 09/17/20 23:13 DC Morphine Sulfate (Morphine Sulfate) 2 mg Q3HR PRN IV PAIN 4 - 6 09/17/20 23:30 10/17/20 23:29 09/18/20 08:45 Pantoprazole Sodium (Protonix Iv) 40 mg DAILY IV 09/18/20 09:00 10/18/20 08:59 09/18/20 08:16 Course Sepsis Screening Results: Posi: NEGATIVE Sepsis Qualifier/Stage: NO DEFINITE RISK Duration or Total Time Spent w: 22M Vitals & review Data Vital Sign - Last 24 Hours 09/17/20 09/17/20 09/17/20 09/17/20 10:01 10:01 10:01 10:42 Temp 98.2 98.2 98.2 Pulse 85 85 85 73 Resp 20 20 20 20 B/P (MAP) 167/100 (122) 123/71 (88) Pulse Ox 97 95 O2 Delivery Room Air Room Air 09/17/20 09/17/20 09/17/20 09/17/20 13:08 14:30 15:10 15:21 Temp 98.2 97.5 Pulse 75 71 73 Resp 20 20 18 B/P (MAP) 151/62 (91) 135/68 (90) 158/83 (108) Pulse Ox 95 96 O2 Delivery Room Air Nasal [place] Nasal [place]ula Nasal Cannula O2 Flow Rate 2.00 2.00 2.00 09/17/20 09/17/20 09/18/20 09/18/20 15:36 20:51 01:04 05:06 Temp 98.9 98.2 98.5 Pulse 80 70 76 Resp 18 18 18 B/P (MAP) 135/90 (105) 134/68 (90) 133/65 (87) Pulse Ox 94 95 96 O2 Delivery Nasal Cannula O2 Flow Rate 2.00 09/18/20 07:15 Temp 98.8 Pulse 76 Resp 18 B/P (MAP) 146/73 (97) Pulse Ox 91 O2 Delivery Nasal [place] O2 Flow Rate 2.00 Intake and Output 09/18/20 07:00 Intake Total 1000 ml Balance 1000 ml Laboratory Tests Test 09/17/20 10:04 09/17/20 10:05 09/17/20 12:03 09/17/20 12:51 White Blood Count 8.3 10^3/uL Red Blood Count 5.21 10^6/uL Hemoglobin 15.1 g/dL Hematocrit 45.7 % Mean Corpuscular Volume 87.7 fL Mean Corpuscular Hemoglobin 29.0 pg Mean Corpuscular Hemoglobin Concent 33.0 g/dL Red Cell Distribution Width 12.5 % Platelet Count 339 10^3/uL Mean Platelet Volume 10.1 fL Neutrophils (%) (Auto) 74.7 % Lymphocytes (%) (Auto) 17.2 % Monocytes (%) (Auto) 7.5 % Neutrophils # (Auto) 6.2 10^3/uL Lymphocytes # (Auto) 1.43 10^3/uL1 Monocytes # (Auto) 0.6 10^3/uL Absolute Immature Granulocyte (auto 0.04 10^3 u/L Absolute Eosinophils (auto) 0.0 10^3/uL Immature Granulocytes % 0.50 % Eosinophils % 0.0 % Basophils % 0.1 % Basophils # 0.0 10^3/uL Prothrombin Time 9.8 SEC Prothrombin Time INR (Non-Therap) 1.0 Activated Partial Thromboplast Time 24.1 SEC Sodium Level 136 mmol/L Potassium Level 4.5 mmol/L Chloride Level 101.0 mmol/L Carbon Dioxide Level 23.3 mmol/L Anion Gap 16.2 Blood Urea Nitrogen 13 mg/dL Creatinine 0.81 mg/dL Estimated GFR () 83.4 Est GFR (CKD-EPI)(Non-Afr [place]) 68.9 BUN/Creatinine Ratio 16.0 Glucose Level 91 mg/dL Calcium Level 9.0 mg/dL Total Bilirubin 0.5 mg/dL Aspartate Amino Transf (AST/SGOT) 53 U/L Alanine Aminotransferase (ALT/SGPT) 37 U/L Alkaline Phosphatase 64 U/L Total Protein 7.0 g/dL Albumin 3.1 g/dL Globulin 3.9 Albumin/Globulin Ratio 0.794 Amylase Level 53 U/L Lipase 139 U/L Helicobacter pylori Screen POSITIVE Urine Collection Type CCMS Urine Color YELLOW Urine Appearance CLEAR Urine Bilirubin NEGATIVE MG/DL Urine Ketones NEGATIVE Urine Specific [place] 1.015 Urine pH 7.0 Urine Protein NEGATIVE Urine Urobilinogen NEGATIVE Urine Nitrate NEGATIVE Urine Leukocyte Esterase NEGATIVE Urine Blood TRACE Urine RBC 0-2 RBC/HPF Urine WBC 0-2 WBC/HPF Urine Squamous Epithelial Cells RARE #/HPF Urine Bacteria RARE Urine Glucose NORMAL SARS-CoV-2 Antigen (Rapid) NEGATIVE Test 09/17/20 17:00 09/17/20 23:47 09/18/20 05:25 Erythrocyte Sedimentation Rate 6 mm/hr Lactic Acid Level 1.0 mmol/L Troponin I < 0.02 ng/mL C-Reactive Protein 9.47 mg/dL White Blood Count 11.4 10^3/uL Red Blood Count 4.35 10^6/uL Hemoglobin 13.0 g/dL Hematocrit 38.6 % Mean Corpuscular Volume 88.7 fL Mean Corpuscular Hemoglobin 29.9 pg Mean Corpuscular Hemoglobin Concent 33.7 g/dL Red Cell Distribution Width 12.7 % Platelet Count 295 10^3/uL Mean Platelet Volume 10.0 fL Neutrophils (%) (Auto) 84.2 % Lymphocytes (%) (Auto) 8.1 % Monocytes (%) (Auto) 7.1 % Neutrophils # (Auto) 9.6 10^3/uL Lymphocytes # (Auto) 0.92 10^3/uL1 Monocytes # (Auto) 0.8 10^3/uL Absolute Immature Granulocyte (auto 0.06 10^3 u/L Absolute Eosinophils (auto) 0.0 10^3/uL Immature Granulocytes % 0.50 % Eosinophils % 0.0 % Basophils % 0.1 % Basophils # 0.0 10^3/uL Prothrombin Time 11.1 SEC Prothrombin Time INR (Non-Therap) 1.1 Sodium Level 136 mmol/L Potassium Level 3.1 mmol/L Chloride Level 100.0 mmol/L Carbon Dioxide Level 28.3 mmol/L Anion Gap 10.8 Blood Urea Nitrogen 8 mg/dL Creatinine 0.51 mg/dL Estimated GFR () 142.3 Est GFR (CKD-EPI)(Non-Afr [place]) 117.6 BUN/Creatinine Ratio 15.0 Glucose Level 105 mg/dL Hemoglobin A1c 6.0 % Calcium Level 8.1 mg/dL Total Bilirubin 0.7 mg/dL Aspartate Amino Transf (AST/SGOT) 48 U/L Alanine Aminotransferase (ALT/SGPT) 47 U/L Alkaline Phosphatase 57 U/L Total Protein 5.7 g/dL Albumin 2.4 g/dL Globulin 3.3 Albumin/Globulin Ratio 0.727 Current Medications Medications (Trade) Dose Ordered Sig/Rosemary PRN Reason Start Time Stop Time Status Last Admin Fentanyl Citrate (Sublimaze) 100 mcg Q4H PRN PAIN 4 - 6 09/17/20 12:30 10/17/20 12:29 09/17/20 16:55 Levothyroxine Sodium (Synthroid) 100 mcg ACB 09/18/20 06:30 10/18/20 06:29 09/18/20 05:53 Morphine Sulfate (Morphine Sulfate) 2 mg Q3HR PRN PAIN 4 - 6 09/17/20 23:30 10/17/20 23:29 09/18/20 08:45 Ondansetron HCl (Zofran) 4 mg Q4H PRN INDIGESTION 09/17/20 12:30 10/17/20 12:29 09/18/20 05:32 Pantoprazole Sodium (Protonix Iv) 40 mg DAILY 09/18/20 09:00 10/18/20 08:59 09/18/20 08:16 Simethicone (Mylicon) 80 mg Q6H PRN INDIGESTION 09/17/20 21:30 10/17/20 21:29 09/17/20 22:17 Sepsis Infection Criteria Pres: Suspected Infection LEVEL 1 SEPSIS INFECTION CRITE: Abdominal Pain LEVEL 2-SIRS (LIST ALL THAT AP: None/Not assessed Cardiovascular Evidence: Not Assessed or None Hematologic Evidence: None/Not assessed Hepatic Evidence: None/Not assessed Metabolic Evidence: None/Not assessed Neurological Evidence: None/Not assessed Respiratory Evidence: None/Not assessed Renal Evidence: None/Not assessed O2 Sat by Pulse Oximetry: 95 Oxygen Flow Rate: 2.00 Assessment/Plan Assessment/Plan Assessment/Plan 1) Abdominal pain: CT shows enterocolitis, will get a sed rate and a CRP for further evaluation. Pain medications will be available to her as needed, but reducing use of opiates due to patient complaining of gas and difficulty having bowel movement, will give magnesium citrate, simethicone and stool softners. Patient passed stool and is no longer taking opiates for pain control. Will treat with Zosyn leukocytosis resolved 2) Hypothyroidism: Continue on current dose of levothyroxine. CODE STATUS: Full code DVT prophylaxis: SCDs Discharged home today Plan H pylori gastroenteritis Enterocolitis Leukocytosis RAMAN TAN MD Sep 20, 2020 07:22
[2020-09-20] MEDS ORDERED: EFFER-K 10 MEQ TABLET EFF PO SCH (07:30)
[2020-09-20] MEDS ORDERED: KCL 20MEQ/100ML 100 ML IV ONE (07:30)
[2020-09-20 07:45] VITALS: BP 138/58
[2020-09-20] MEDS: PROTONIX IV IV SCH (08:20)
[2020-09-20] MEDS: PREDNISONE PO SCH (08:20)
[2020-09-20] MEDS: COLACE PO SCH ×2 (08:20→08:40)
[2020-09-20] MEDS ORDERED: PRED20TA PO (08:26)
--- NOTE | 2020-09-20 08:27 | PRM.DC ---
Discharge Summary Date of Discharge: Sep 20, 2020 Time of Request to Discharge: 08:27 Hospital Course Hx of Present Illness Patient is a 75-year-old very pleasant lady with a past medical history of hypothyroidism who presented to the ED this morning with a complaint of severe pain, 10/10 across the middle of the belly which is moving throughout the abdomen. She tells me that she woke up went to the bathroom, had a normal BM, and then felt this pain started. She says the pain feels like bloating and as if she is gassy. Because of that feeling she took [place] but did not have any relief from it. She says she is having a hard time describing what the pain feels like because it is so severe. She continues to sit if she lays perfectly still the pain is 6 out of 10 but with any movement it becomes a 10 out of 10. The pain migrates from the upper quadrants to the lower quadrant and during our interview she tells me that the pain actually moved to the right shoulder. Patient denies any nausea vomiting, diarrhea, or any other symptoms pertaining to the abdomen or any other part of her body at this time. Patient states that she has been feeling just fine until she woke up this morning. She did in fact recently recover from COVID-19 and did have IV antibiotics and treatments at home but was never hospitalized. In emergency she was worked up she was found to have a normal white blood cell count, hemoglobin of 15, hematocrit 45.7 her chemistry was within normal limits except for mildly elevated AST at 53 and an albumin of 3.1 which is mildly low. She was positive for H. pylori, however negative for SARS-CoV-[address] of the abdomen was done which showed edema of the proximal small bowel mesentery with thickening of the small bowel wall and central abdomen, however no dilated loops were seen, no fluid collection. There was mild diverticulosis without signs of diverticulitis. Patient reports that she had previously been diagnosed with and treated for H pylori. In the hospital patient was given bowel rest with IV fluids initially and then advanced to clear liquid diet. She was treated with Zosyn for enterocolitis on the CT scan and leukocytosis, which resolved. Patient was able to advance her diet to regular and was discharge when she was tolerating PO without emesis. Abdominal pain gradually resolved over the course of several days. Patient had reassuring labs and benign abdominal exam at the time of discharge Patient History: Cerebrovascular accident (CVA) in mother FHx: GI cancer General: Alert, Oriented X3, Cooperative, No acute distress HEENT: Atraumatic, PERRLA, EOMI, Mucous membr. moist/pink Neck: Supple, No JVD Lungs: Clear to auscultation, Normal air movement Heart: Regular rate, Normal S1 Abdomen: Normal bowel sounds, Soft, No tenderness, No hepatospenomegaly Extremities: No clubbing, No cyanosis, No edema, Normal pulses Skin: No rashes, No breakdown, No significant lesion Neuro: Normal gait, Normal speech, Strength at 5/5 X4 ext, Cranial nerves 3-12 NL Psych/Mental Status: Mental status NL, Mood NL Scheduled Levothyroxine Sodium (Synthroid), 100 MCG PO DAILY, (Reported) Prednisone (Prednisone), 20 MG PO DAILY24 Sepsis Evaluation @ Discharge Vital Sign - Last 24 Hours 09/17/20 09/17/20 09/17/20 09/17/20 10:01 10:01 10:01 10:42 Temp 98.2 98.2 98.2 Pulse 85 85 85 73 Resp 20 20 20 20 B/P (MAP) 167/100 (122) 123/71 (88) Pulse Ox 97 95 O2 Delivery Room Air Room Air 09/17/20 09/17/20 09/17/20 09/17/20 13:08 14:30 15:10 15:21 Temp 98.2 97.5 Pulse 75 71 73 Resp 20 20 18 B/P (MAP) 151/62 (91) 135/68 (90) 158/83 (108) Pulse Ox 95 96 O2 Delivery Room Air Nasal Canula Nasal Canula Nasal Cannula O2 Flow Rate 2.00 2.00 2.00 09/17/20 09/17/20 09/18/20 09/18/20 15:36 20:51 01:04 05:06 Temp 98.9 98.2 98.5 Pulse 80 70 76 Resp 18 18 18 B/P (MAP) 135/90 (105) 134/68 (90) 133/65 (87) Pulse Ox 94 95 96 O2 Delivery Nasal Cannula O2 Flow Rate 2.00 09/18/20 07:15 Temp 98.8 Pulse 76 Resp 18 B/P (MAP) 146/73 (97) Pulse Ox 91 O2 Delivery Nasal Canula O2 Flow Rate 2.00 Intake and Output 09/18/20 07:00 Intake Total 1000 ml Balance 1000 ml Laboratory Tests Test 09/17/20 10:04 09/17/20 10:05 09/17/20 12:03 09/17/20 12:51 White Blood Count 8.3 10^3/uL Red Blood Count 5.21 10^6/uL Hemoglobin 15.1 g/dL Hematocrit 45.7 % Mean Corpuscular Volume 87.7 fL Mean Corpuscular Hemoglobin 29.0 pg Mean Corpuscular Hemoglobin Concent 33.0 g/dL Red Cell Distribution Width 12.5 % Platelet Count 339 10^3/uL Mean Platelet Volume 10.1 fL Neutrophils (%) (Auto) 74.7 % Lymphocytes (%) (Auto) 17.2 % Monocytes (%) (Auto) 7.5 % Neutrophils # (Auto) 6.2 10^3/uL Lymphocytes # (Auto) 1.43 10^3/uL1 Monocytes # (Auto) 0.6 10^3/uL Absolute Immature Granulocyte (auto 0.04 10^3 u/L Absolute Eosinophils (auto) 0.0 10^3/uL Immature Granulocytes % 0.50 % Eosinophils % 0.0 % Basophils % 0.1 % Basophils # 0.0 10^3/uL Prothrombin Time 9.8 SEC Prothrombin Time INR (Non-Therap) 1.0 Activated Partial Thromboplast Time 24.1 SEC Sodium Level 136 mmol/L Potassium Level 4.5 mmol/L Chloride Level 101.0 mmol/L Carbon Dioxide Level 23.3 mmol/L Anion Gap 16.2 Blood Urea Nitrogen 13 mg/dL Creatinine 0.81 mg/dL Estimated GFR () 83.4 Est GFR (CKD-EPI)(Non-Afr [place]) 68.9 BUN/Creatinine Ratio 16.0 Glucose Level 91 mg/dL Calcium Level 9.0 mg/dL Total Bilirubin 0.5 mg/dL Aspartate Amino Transf (AST/SGOT) 53 U/L Alanine Aminotransferase (ALT/SGPT) 37 U/L Alkaline Phosphatase 64 U/L Total Protein 7.0 g/dL Albumin 3.1 g/dL Globulin 3.9 Albumin/Globulin Ratio 0.794 Amylase Level 53 U/L Lipase 139 U/L Helicobacter pylori Screen POSITIVE Urine Collection Type CCMS Urine Color YELLOW Urine Appearance CLEAR Urine Bilirubin NEGATIVE MG/DL Urine Ketones NEGATIVE Urine Specific [place] 1.015 Urine pH 7.0 Urine Protein NEGATIVE Urine Urobilinogen NEGATIVE Urine Nitrate NEGATIVE Urine Leukocyte Esterase NEGATIVE Urine Blood TRACE Urine RBC 0-2 RBC/HPF Urine WBC 0-2 WBC/HPF Urine Squamous Epithelial Cells RARE #/HPF Urine Bacteria RARE Urine Glucose NORMAL SARS-CoV-2 Antigen (Rapid) NEGATIVE Test 09/17/20 17:00 09/17/20 23:47 09/18/20 05:25 Erythrocyte Sedimentation Rate 6 mm/hr Lactic Acid Level 1.0 mmol/L Troponin I < 0.02 ng/mL C-Reactive Protein 9.47 mg/dL White Blood Count 11.4 10^3/uL Red Blood Count 4.35 10^6/uL Hemoglobin 13.0 g/dL Hematocrit 38.6 % Mean Corpuscular Volume 88.7 fL Mean Corpuscular Hemoglobin 29.9 pg Mean Corpuscular Hemoglobin Concent 33.7 g/dL Red Cell Distribution Width 12.7 % Platelet Count 295 10^3/uL Mean Platelet Volume 10.0 fL Neutrophils (%) (Auto) 84.2 % Lymphocytes (%) (Auto) 8.1 % Monocytes (%) (Auto) 7.1 % Neutrophils # (Auto) 9.6 10^3/uL Lymphocytes # (Auto) 0.92 10^3/uL1 Monocytes # (Auto) 0.8 10^3/uL Absolute Immature Granulocyte (auto 0.06 10^3 u/L Absolute Eosinophils (auto) 0.0 10^3/uL Immature Granulocytes % 0.50 % Eosinophils % 0.0 % Basophils % 0.1 % Basophils # 0.0 10^3/uL Prothrombin Time 11.1 SEC Prothrombin Time INR (Non-Therap) 1.1 Sodium Level 136 mmol/L Potassium Level 3.1 mmol/L Chloride Level 100.0 mmol/L Carbon Dioxide Level 28.3 mmol/L Anion Gap 10.8 Blood Urea Nitrogen 8 mg/dL Creatinine 0.51 mg/dL Estimated GFR () 142.3 Est GFR (CKD-EPI)(Non-Afr [place]) 117.6 BUN/Creatinine Ratio 15.0 Glucose Level 105 mg/dL Hemoglobin A1c 6.0 % Calcium Level 8.1 mg/dL Total Bilirubin 0.7 mg/dL Aspartate Amino Transf (AST/SGOT) 48 U/L Alanine Aminotransferase (ALT/SGPT) 47 U/L Alkaline Phosphatase 57 U/L Total Protein 5.7 g/dL Albumin 2.4 g/dL Globulin 3.3 Albumin/Globulin Ratio 0.727 Current Medications Medications (Trade) Dose Ordered Sig/Rosemary PRN Reason Start Time Stop Time Status Last Admin Fentanyl Citrate (Sublimaze) 100 mcg Q4H PRN PAIN 4 - 6 09/17/20 12:30 10/17/20 12:29 09/17/20 16:55 Levothyroxine Sodium (Synthroid) 100 mcg ACB 09/18/20 06:30 10/18/20 06:29 09/18/20 05:53 Morphine Sulfate (Morphine Sulfate) 2 mg Q3HR PRN PAIN 4 - 6 09/17/20 23:30 10/17/20 23:29 09/18/20 08:45 Ondansetron HCl (Zofran) 4 mg Q4H PRN INDIGESTION 09/17/20 12:30 10/17/20 12:29 09/18/20 05:32 Pantoprazole Sodium (Protonix Iv) 40 mg DAILY 09/18/20 09:00 10/18/20 08:59 09/18/20 08:16 Simethicone (Mylicon) 80 mg Q6H PRN INDIGESTION 09/17/20 21:30 10/17/20 21:29 09/17/20 22:17 Course Sepsis Screening Results: Posi: NEGATIVE Sepsis Qualifier/Stage: NO DEFINITE RISK Duration or Total Time Spent w: 22M Vitals & review Data Vital Sign - Last 24 Hours 09/17/20 09/17/20 09/17/20 09/17/20 10:01 10:01 10:01 10:42 Temp 98.2 98.2 98.2 Pulse 85 85 85 73 Resp 20 20 20 B/P (MAP) 167/100 (122) 123/71 (88) Pulse Ox 97 95 O2 Delivery Room Air Room Air 09/17/20 09/17/20 09/17/20 09/17/20 13:08 14:30 15:10 15:21 Temp 98.2 97.5 Pulse 75 71 73 Resp 20 20 18 B/P (MAP) 151/62 (91) 135/68 (90) 158/83 (108) Pulse Ox 95 96 O2 Delivery Room Air Nasal Canula Nasal Canula Nasal Cannula O2 Flow Rate 2.00 2.00 2.00 09/17/20 09/17/20 09/18/20 09/18/20 15:36 20:51 01:04 05:06 Temp 98.9 98.2 98.5 Pulse 80 70 76 Resp 18 18 18 B/P (MAP) 135/90 (105) 134/68 (90) 133/65 (87) Pulse Ox 94 95 96 O2 Delivery Nasal Cannula O2 Flow Rate 2.00 09/18/20 07:15 Temp 98.8 Pulse 76 Resp 18 B/P (MAP) 146/73 (97) Pulse Ox 91 O2 Delivery Nasal [place] O2 Flow Rate 2.00 Intake and Output 09/18/20 07:00 Intake Total 1000 ml Balance 1000 ml Laboratory Tests Test 09/17/20 10:04 09/17/20 10:05 09/17/20 12:03 09/17/20 12:51 White Blood Count 8.3 10^3/uL Red Blood Count 5.21 10^6/uL Hemoglobin 15.1 g/dL Hematocrit 45.7 % Mean Corpuscular Volume 87.7 fL Mean Corpuscular Hemoglobin 29.0 pg Mean Corpuscular Hemoglobin Concent 33.0 g/dL Red Cell Distribution Width 12.5 % Platelet Count 339 10^3/uL Mean Platelet Volume 10.1 fL Neutrophils (%) (Auto) 74.7 % Lymphocytes (%) (Auto) 17.2 % Monocytes (%) (Auto) 7.5 % Neutrophils # (Auto) 6.2 10^3/uL Lymphocytes # (Auto) 1.43 10^3/uL1 Monocytes # (Auto) 0.6 10^3/uL Absolute Immature Granulocyte (auto 0.04 10^3 u/L Absolute Eosinophils (auto) 0.0 10^3/uL Immature Granulocytes % 0.50 % Eosinophils % 0.0 % Basophils % 0.1 % Basophils # 0.0 10^3/uL Prothrombin Time 9.8 SEC Prothrombin Time INR (Non-Therap) 1.0 Activated Partial Thromboplast Time 24.1 SEC Sodium Level 136 mmol/L Potassium Level 4.5 mmol/L Chloride Level 101.0 mmol/L Carbon Dioxide Level 23.3 mmol/L Anion Gap 16.2 Blood Urea Nitrogen 13 mg/dL Creatinine 0.81 mg/dL Estimated GFR () 83.4 Est GFR (CKD-EPI)(Non-Afr [place]) 68.9 BUN/Creatinine Ratio 16.0 Glucose Level 91 mg/dL Calcium Level 9.0 mg/dL Total Bilirubin 0.5 mg/dL Aspartate Amino Transf (AST/SGOT) 53 U/L Alanine Aminotransferase (ALT/SGPT) 37 U/L Alkaline Phosphatase 64 U/L Total Protein 7.0 g/dL Albumin 3.1 g/dL Globulin 3.9 Albumin/Globulin Ratio 0.794 Amylase Level 53 U/L Lipase 139 U/L Helicobacter pylori Screen POSITIVE Urine Collection Type CCMS Urine Color YELLOW Urine Appearance CLEAR Urine Bilirubin NEGATIVE MG/DL Urine Ketones NEGATIVE Urine Specific [place] 1.015 Urine pH 7.0 Urine Protein NEGATIVE Urine Urobilinogen NEGATIVE Urine Nitrate NEGATIVE Urine Leukocyte Esterase NEGATIVE Urine Blood TRACE Urine RBC 0-2 RBC/HPF Urine WBC 0-2 WBC/HPF Urine Squamous Epithelial Cells RARE #/HPF Urine Bacteria RARE Urine Glucose NORMAL SARS-CoV-2 Antigen (Rapid) NEGATIVE Test 09/17/20 17:00 09/17/20 23:47 09/18/20 05:25 Erythrocyte Sedimentation Rate 6 mm/hr Lactic Acid Level 1.0 mmol/L Troponin I < 0.02 ng/mL C-Reactive Protein 9.47 mg/dL White Blood Count 11.4 10^3/uL Red Blood Count 4.35 10^6/uL Hemoglobin 13.0 g/dL Hematocrit 38.6 % Mean Corpuscular Volume 88.7 fL Mean Corpuscular Hemoglobin 29.9 pg Mean Corpuscular Hemoglobin Concent 33.7 g/dL Red Cell Distribution Width 12.7 % Platelet Count 295 10^3/uL Mean Platelet Volume 10.0 fL Neutrophils (%) (Auto) 84.2 % Lymphocytes (%) (Auto) 8.1 % Monocytes (%) (Auto) 7.1 % Neutrophils # (Auto) 9.6 10^3/uL Lymphocytes # (Auto) 0.92 10^3/uL1 Monocytes # (Auto) 0.8 10^3/uL Absolute Immature Granulocyte (auto 0.06 10^3 u/L Absolute Eosinophils (auto) 0.0 10^3/uL Immature Granulocytes % 0.50 % Eosinophils % 0.0 % Basophils % 0.1 % Basophils # 0.0 10^3/uL Prothrombin Time 11.1 SEC Prothrombin Time INR (Non-Therap) 1.1 Sodium Level 136 mmol/L Potassium Level 3.1 mmol/L Chloride Level 100.0 mmol/L Carbon Dioxide Level 28.3 mmol/L Anion Gap 10.8 Blood Urea Nitrogen 8 mg/dL Creatinine 0.51 mg/dL Estimated GFR () 142.3 Est GFR (CKD-EPI)(Non-Afr [place]) 117.6 BUN/Creatinine Ratio 15.0 Glucose Level 105 mg/dL Hemoglobin A1c 6.0 % Calcium Level 8.1 mg/dL Total Bilirubin 0.7 mg/dL Aspartate Amino Transf (AST/SGOT) 48 U/L Alanine Aminotransferase (ALT/SGPT) 47 U/L Alkaline Phosphatase 57 U/L Total Protein 5.7 g/dL Albumin 2.4 g/dL Globulin 3.3 Albumin/Globulin Ratio 0.727 Current Medications Medications (Trade) Dose Ordered Sig/Rosemary PRN Reason Start Time Stop Time Status Last Admin Fentanyl Citrate (Sublimaze) 100 mcg Q4H PRN PAIN 4 - 6 09/17/20 12:30 10/17/20 12:29 09/17/20 16:55 Levothyroxine Sodium (Synthroid) 100 mcg ACB 09/18/20 06:30 10/18/20 06:29 09/18/20 05:53 Morphine Sulfate (Morphine Sulfate) 2 mg Q3HR PRN PAIN 4 - 6 09/17/20 23:30 10/17/20 23:29 09/18/20 08:45 Ondansetron HCl (Zofran) 4 mg Q4H PRN INDIGESTION 09/17/20 12:30 10/17/20 12:29 09/18/20 05:32 Pantoprazole Sodium (Protonix Iv) 40 mg DAILY 09/18/20 09:00 10/18/20 08:59 09/18/20 08:16 Simethicone (Mylicon) 80 mg Q6H PRN INDIGESTION 09/17/20 21:30 10/17/20 21:29 09/17/20 22:17 Sepsis Infection Criteria Pres: Suspected Infection LEVEL 1 SEPSIS INFECTION CRITE: Abdominal Pain LEVEL 2-SIRS (LIST ALL THAT AP: None/Not assessed Cardiovascular Evidence: Not Assessed or None Hematologic Evidence: None/Not assessed Hepatic Evidence: None/Not assessed Metabolic Evidence: None/Not assessed Neurological Evidence: None/Not assessed Respiratory Evidence: None/Not assessed Renal Evidence: None/Not assessed O2 Sat by Pulse Oximetry: 95 Oxygen Flow Rate: 2.00 Plan Assessment 1) Abdominal pain: CT shows enterocolitis, will get a sed rate and a CRP for fur ther evaluation. Pain medications will be available to her as needed, but reducing use of opiates due to patient complaining of gas and difficulty having bowel movement, will give magnesium citrate, simethicone and stool softners. Patient passed stool and is no longer taking opiates for pain control. Will treat with Zosyn leukocytosis resolved 2) Hypothyroidism: Continue on current dose of levothyroxine. CODE STATUS: Full code DVT prophylaxis: SCDs Discharged home today RAMAN TAN MD Sep 20, 2020 08:27
[2020-09-20] MEDS ORDERED: POTASSIUM CHLORIDE ONE (08:53)
[2020-09-20] MEDS: EFFER-K 10 MEQ TABLET EFF PO SCH (08:59)
--- NOTE | 2020-09-20 09:38 | NUR ---
WHILE LAYING IN BED ON ROOM AIR, PATIENT IS SATTING AT 94 PERCENT. SITTING AT EDGE OF BED PRIOR TO WALK, SHE IS SATTING AT 91 PERCENT. WHILE AMBULATING DOWN THE [place], PATIENT IS SATTING AT 92 PERCENT AND DID NOT GO BELOW 91 PERCENT. PATIENT NOW LAYING COMFORTABLY IN BED. SITTING AT BEDSIDE.
[2020-09-20 10:06] VITALS: BP 138/58
--- NOTE | 2020-09-20 10:10 | NUR ---
DISCHARGE VERBAL AND WRITTEN EDUCATION GIVEN R/T NEW MEDICATION PREDNISONE USES AND SIDE EFFECTS. EDUCATED ON VIRAL GASTROENTERITIS, SYMPTOMS TO REPORT TO DR. EDUCATED ON INCREASING ACTIVITY AND DIET TOLERATED. PT VERBALIZED UNDERSTANDING, DENIES ANY FURTHER QUESTIONS OR CONCERNS AT THIS TIME.
--- NOTE | 2020-09-20 10:15 | NUR ---
IV'S WERE TAKEN OFF. PATIENT CHANGED INTO PERSONAL CLOTHING AND WENT DOWNSTAIRS VIA WHEELCHAIR. DROVE UP AND PATIENT SAFELY TRANSPORTED INSIDE THE VEHICLE.
== END 2020-09-20 10:00 | disposition still patient (30) ==
LOC: ER 09:32 → MS 14:07 → INTOOBSV 14:07 → MS 14:23
PROVIDERS: ADMIT Family Medicine; ATTEND Family Medicine
DX: K52.9 Noninfective gastroenteritis and colitis, unspecified (principal); Z20.828 Contact with and (suspected) exposure to other viral communicable diseases; E03.9 Hypothyroidism, unspecified; Z87.891 Personal history of nicotine dependence; Z79.890 Hormone replacement therapy; Z90.49 Acquired absence of other specified parts of digestive tract; Z79.899 Other long term (current) drug therapy
CPT/HCPCS: 36415 ×4; 74177; 80053 ×4; 81000; 82150; 83036; 83605; 83690; 84484; 85025 ×4; 85610 ×2; 85651; 85730; 86140; 86677; 87077; 87086; 87186; 87426; 93005; 96361 ×2; 96365; 96366 ×3; 96372 ×2; 96375 ×2; 96376 ×4; 99285; C9113 ×3; G0378 ×3; J1650 ×2; J1885 ×2; J2270; J2405 ×2; J2543 ×2; J3010; J7030; J7050 ×2; J7120 ×3; J7512 ×2; Q9965; J3480

== ENCOUNTER → 2020-10-25 | Outpatient (CLI) | payer MEDICARE ==
[~2020-10-25] MED LIST changes: +PRED20TA PO
--- NOTE | 2020-10-25 10:59 | DIREP ---
PROCEDURE:ABDOMINAL ULTRASOUND COMPARISON:[facility] and Spiral CT, US, US ABDOMEN COMPLETE, 02/02/2020, 02:07 PM. [facility], CT, CT ABD/PELVIS W/ CONTRAST, 09/17/2020, 11:24 AM. [facility], CT, CT ABD/PELVIS W/ CONTRAST, 04/20/2020, 04:14 PM. [facility], CT, CT ABD/PELVIS W/O, 06/05/2019, 10:14 AM. INDICATIONS:SEVERE ABD PAIN TECHNIQUE:High resolution sonographic examination was performed of the abdomen. FINDINGS: PANCREAS:Visualized portions of the pancreatic head and body appear heterogeneous. No focal lesion or ductal dilatation is definitively seen. The pancreatic tail is obscured by bowel gas shadowing. LIVER:Mildly enlarged Increased hepatic echotexture consistent with hepatic steatosis. There is decreased echotexture adjacent to the gallbladder fossa consistent with focal fatty sparing No focal hepatic lesion is identified. Hepatopetal flow in the portal vein. GALLBLADDER:The gallbladder is surgically absent. BILIARY:There is no biliary ductal dilatation. RIGHT KIDNEY:Normal. No hydronephrosis. LEFT KIDNEY:No hydronephrosis or suspicious cortical lesion. A echogenic non shadowing focus without twinkle artifact could represent a nonobstructive calculus in the interpolar region, though none was seen on recent CT. SPLEEN:Normal. AORTA:The visualized portions appear unremarkable. IVC:Intrahepatic portions unremarkable. OTHER:Negative. No ascites is identified. AORTA (prox):1.5 x 1.6 cm CBD:0.6 cm LIVER:17.4 cm in length. RIGHT KIDNEY:12.4 x 4.7 x 5.9 cm LEFT KIDNEY:12.7 x 8.2 x 6.5 cm SPLEEN:9.4 x 8.9 x 4.5 cm, Volume: 196.9 ml CONCLUSION: 1. No acute findings in the abdomen. 2. Mildly enlarged steatotic liver. No focal liver lesion seen. 3. Status postcholecystectomy. No biliary ductal dilatation. 4. Other incidental findings as detailed above. Dictated by: GUERO Physician on 10/25/2020 at 10:21 AM ac
== END | disposition home or self-care (01) ==
LOC: RAD 08:45
PROVIDERS: ATTEND Internal Medicine
DX: K59.00 Constipation, unspecified (principal); R10.30 Lower abdominal pain, unspecified; K76.0 Fatty (change of) liver, not elsewhere classified; R16.0 Hepatomegaly, not elsewhere classified
CPT/HCPCS: 76700

== ENCOUNTER 2021-05-29 14:30 | Emergency (ER) | payer MEDICARE ==
[~2021-05-29] VITALS: Ht 167.6 cm; Wt 77.1 kg
--- NOTE | 2021-05-29 14:43 | NUR ---
ARRIVAL PT ARRIVED TO ED WITH C/O RIGHT KNEE PAIN. PT STATES THAT SHE WAS SITTING AT HER DESK AND WHEN SHE GOT UP SHE HAD SHARP PAIN WITH INCREASED PAIN DURING AMBULATION. PT DENIES ANY INJURY. PT HAS SWELLING AND WARMTH TO RIGHT OUTSIDE OF KNEE. BEDSIDE MONITORS APPLIED. VITAL SIGNS STABLE. BED IN LOW LOCKED POSITION. PT TOOK TYLENOL 1000MG, APPLIED BIOFREEZE AND [place] WRAP TO KNEE PRIOR TO ARRIVAL.
[2021-05-29 14:56] VITALS: BP 159/81
[2021-05-29 15:03] VITALS: BP 159/81
[2021-05-29 15:33] VITALS: BP 157/80
--- NOTE | 2021-05-29 16:18 | DIREP ---
PROCEDURE:XRAY KNEE 4 VIEWS COMPARISON:None. INDICATIONS:Right knee pain FINDINGS: BONES:No fracture is seen. JOINTS:Moderate osteoarthrosis is noted characterized by moderate narrowing of the medial joint compartment and mild tricompartmental osteophyte formation. A moderate size suprapatellar joint effusion is demonstrated. Severe narrowing of the lateral patellofemoral articulation is demonstrated. SOFT TISSUES:Normal. OTHER:No additional findings. CONCLUSION: 1. 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 Dictated by: Maurizio Ruiz M.D. on 05/29/2021 at 04:15 PM
--- NOTE | 2021-05-29 16:45 | ER.PDOC ---
General Chief Complaint: Extremities Stated Complaint: PAIN RIGHT KNEE Time seen by MD: 15:45 Source: patient Exam Limitations: no limitations History of Present Illness Initial Comments Patient present to the ER with the CC of having severe pain on the right knee that start out of the blue, no trauma, patient was siting on a chair and the pain just started. No Calf tenderness , no lower extremity swelling. Small knot noticed on the superior lateral aspect of the knee Onset: just prior to arrival Where: work Severity: mild Exacerbated By: walking movement Relieved By: rest, ice Allergies: Coded Allergies: hydrocodone (Verified Allergy, Unknown, 09/17/20) promethazine HCl (Verified Allergy, Unknown, 09/17/20) Home Meds Active Scripts Prednisone (PREDNISONE) 20 Mg Tablet, 20 MG PO DAILY24 for 5 Days, #5 TAB Prov:RAMAN TAN MD 09/20/20 Reported Medications Levothyroxine Sodium (SYNTHROID) 100 Mcg Tablet, 100 MCG PO DAILY 01/11/14 Past Medical History Medical History: thyroid disease Surgical History: cholecystectomy, hysterectomy, other Social History Alcohol Use: none Drug Use: none Review of Systems Constitutional: no symptoms reported EENTM: no symptoms reported Respiratory: no symptoms reported Cardiovascular: no symptoms reported Gastrointestinal: no symptoms reported Genitourinary: no symptoms reported Musculoskeletal: see HPI Skin: see HPI Physical Exam General Appearance: Alert, No Apparent Distress Lower Extremity: nml inspection Joint Exam: nml ROM, antalgic gait Vascular: no vascular compromise, pulses full/equal, pale/cool extremity Neuro/Psych: sensation nml, motor nml Skin: color nml, warm/dry Back/Neck: nml inspection EENT: eyes inspection nml Respiratory: no resp distress, breath sounds nml, respiratory distress Results/Orders Results/Orders Orders - KEN URRUTIA MD Xr Knee Lt 4v (05/29/21 15:00) Vital Signs Date Time Temp Pulse Resp B/P (MAP) Pulse Ox O2 Delivery O2 Flow Rate FiO2 05/29/21 15:33 97.8 74 18 157/80 (105) 94 Room Air 05/29/21 15:03 97.8 68 18 159/81 (107) 97 Room Air 05/29/21 14:56 97.8 68 18 97 05/29/21 14:56 97.8 68 18 159/81 (107) 97 Room Air 05/29/21 14:56 97.8 68 18 ER DEPART Departure Time of Disposition: 16:43 Disposition: 01 HOME / SELF CARE / HOMELESS Impression: Primary Impression: Knee pain, left Additional Impression: Knee pain, acute Condition: Improved Comments Patient was adviced to follow up with her PCP and discuss the need for a MRI. X ray reviewed.Comprehensive ER evaluation was performed of the patient's symptoms. The patient was given the opportunity to have all of them questions addressed. Medication side effects and porpoise of the medication were discussed in detail. Patient was involved in the medical decision making. The patient voices understanding and agreement with the plan of care. Follow up with your PCP for further evaluation and treatment. Take your medication as prescribed. Drink enough fluid as recommended by your provider. If worsening symptoms or new symptoms start please visit your PCP or return to the ER. Patient is stable at thy moment of the the discharge.. Symptoms and signs for early ER return were discussed. Alternant Tylenol and Motrin if indicated, can be use them one at the time q 3 hrs. Follow up with your PCP for further treatment and management. Please read your DC instructions. Duration or Time Spent with Pa: 15 Return to Work/School Can a patient return to work?: Yes Can a patient return to school: Yes Problem Qualifiers KEN URRUTIA MD May 29, 2021 16:44
== END 2021-05-29 16:40 | disposition home or self-care (01) ==
LOC: ER 14:30
DX: M25.562 Pain in left knee (principal); E07.9 Disorder of thyroid, unspecified; Z79.52 Long term (current) use of systemic steroids; Z88.5 Allergy status to narcotic agent; Z90.49 Acquired absence of other specified parts of digestive tract; Z90.710 Acquired absence of both cervix and uterus
CPT/HCPCS: 99283; 73564-LT